=== PATIENT | female | born 1935 | race Caucasian/White ===

== ENCOUNTER 2019-12-05 08:06 | Outpatient (REF) | payer MEDICARE, SELFPAY ==
--- NOTE | 2019-12-05 08:17 | MM_ITS ---
EXAMINATION: MM SCREENING DIGITAL BREAST TOMOSYNTHESIS, BILATERAL CLINICAL INFORMATION: Screening. Asymptomatic. The lifetime risk of breast cancer based on the Tyrer-Cuzick Model is 1%. COMPARISON: Mammography: 08/28/2011, 07/14/2010, 05/14/2009 TECHNIQUE: Digital breast tomosynthesis is performed in both the craniocaudal and mediolateral oblique views along with computer-aided detection (CAD). Synthesized 2D images are generated from the tomosynthesis. FINDINGS: There are scattered areas of fibroglandular density (ACR BI-RADS breast composition Category b). Parenchymal pattern is similar to remote prior exams. There is stable oval nodularity anterior outer left breast and stable nodularity anterior central right breast. Again, there are scattered bilateral coarse calcifications and calcifications anterior left breast overlying chronic ductal ectasia. There is no significant mass or architectural abnormality or interval abnormal calcifications. The axilla and skin contours are unremarkable. IMPRESSION: No significant changes from prior studies. ASSESSMENT: BI-RADS 2: Benign RECOMMENDATION: Routine annual mammography screening. This patient's information was entered into a reminder system with a target due date for their next mammogram.
--- NOTE | 2019-12-05 08:18 | MM_ITS ---
EXAMINATION: BONE DENSITOMETRY CLINICAL INDICATION: Menopause. COMPARISON: Previous BD dated 05/29/2014 and baseline BD dated 01/05/2005. TECHNIQUE: Using a [employer] DXA System (software version: 13.1) manufactured by [employer], dual-energy x-ray absorptiometry was performed of the lumbar spine and left hip. The images are of good technical quality. Summary results are attached. FINDINGS: AP SPINE L1-L3 (excluding L4): The data of L1-L4 has been changed to exclude the L4 vertebral body, because degenerative changes at this level may cause overestimation of lumbar spine density. Current: BMD 0.863 g/cm2, Z-score -0.4, T-score -2.6, osteoporosis, 0.1% increase from previous, 0.6% increase from baseline (<5% change is not significant). Prior: BMD 0.862 g/cm2. Baseline: BMD 0.858 g/cm2. LEFT FEMUR, NECK: Current: BMD 0.813 g/cm2, Z-score 0.8, T-score -1.6, osteopenia. Prior: BMD 0.771 g/cm2. Baseline: BMD 0.774 g/cm2. LEFT FEMUR, TOTAL: Current: BMD 0.931 g/cm2, Z-score 1.7, T-score -0.6, normal, 2.0% increase from previous, 7.1% increase from baseline (<5% change is not significant). Prior: BMD 0.913 g/cm2. Baseline: BMD 0.869 g/cm2. IDENTIFIED RISK FACTORS: Height loss, menopause. HISTORY OF FRACTURE: None listed. MEDICATIONS: None listed. IMPRESSION: 1. DIAGNOSIS: Osteoporosis based on the lowest T-score value of -2.6 in the lumbar spine applying World Health Organization criteria. 2. 10-YEAR FRACTURE RISK PREDICTION, FRAX: Major osteoporotic fracture (clinical spine, forearm, hip or shoulder) 13.9%. Hip fracture 3.8%. 3. Treatment Recommendations: NOF guidelines recommend consideration for treatment in postmenopausal women and men age 50 and older presenting with the following: -A hip or vertebral (clinical or morphometric) fracture. -T-score less than or equal to -2.5 at the femoral neck or spine after appropriate evaluation to exclude secondary causes. -Low bone mass at the hip or spine and a 10-year fracture probability by FRAX of greater than or equal to 3% for hip fracture or greater than or equal to 20% for major osteoporotic fracture based on the [place] adapted WHO algorithm. 4. Other Recommendations: All treatment decisions require clinical judgment and consideration of individual patient factors, including patient preferences, comorbidities, previous drug use, risk factors not captured in the FRAX model (e.g. frailty, falls, vitamin D deficiency, increased bone turnover, interval significant decline in bone density) and possible under or overestimation of fracture risk by FRAX. Additional medical evaluation for secondary cause of low bone mineral density may be appropriate. FUTURE SCAN RECOMMENDATION: People with diagnosed cases of osteoporosis or at high risk for fracture should have regular bone mineral density tests. For patients eligible for Medicare, routine testing is allowed once every 2 years. The testing frequency can be increased to one year for patients who have rapidly progressing disease, those who are receiving or discontinuing medical therapy to restore bone mass, or have additional risk factors.
== END 2019-12-05 08:07 | disposition home or self-care (01) ==
LOC: HO.MAMMO 08:06
PROVIDERS: PCP Internal Medicine; Visit Provider Internal Medicine
DX: Z12.31 Encounter for screening mammogram for malignant neoplasm of breast (principal); Z13.820 Encounter for screening for osteoporosis; M81.0 Age-related osteoporosis without current pathological fracture; Z78.0 Asymptomatic menopausal state
CPT/HCPCS: 77063; 77067; 77080

== ENCOUNTER 2020-04-10 10:04 | Outpatient (REF) | payer MEDICARE, SELFPAY ==
[2020-04-10 11:47] LABS: Anion Gap 11 (12-20); Blood Urea Nitrogen 12 mg/dL (9-16); Calcium 9.3 mg/dL (8.4-10.2); Carbon Dioxide 30 mmol/L (22-29); Chloride 100 mmol/L (96-108); Estimated Glomerular Filt Rate > 60; Glucose Random 89 mg/dL (60-115); Potassium 4.8 mmol/L (3.3-5.1); Sodium 136 mmol/L (135-145)
[2020-04-10 11:57] LABS: Free T4 (Free Thyroxine) 1.23 ng/dL (0.71-1.85); Thyroid Stimulating Hormone 0.81 uIU/mL (0.32-4.0)
== END 2020-04-10 10:05 | disposition home or self-care (01) ==
LOC: HO.HMGCLDS 10:04
PROVIDERS: PCP Internal Medicine; Visit Provider Internal Medicine
DX: I10 Essential (primary) hypertension (principal); E03.9 Hypothyroidism, unspecified
CPT/HCPCS: 36415; 80048; 84439; 84443

== ENCOUNTER 2020-07-04 11:41 | Outpatient (REF) | payer MEDICARE, SELFPAY ==
[2020-07-04 13:54] LABS: MANUAL DIFF FLAG NO
[2020-07-04 14:01] LABS: Basophils Absolute Auto 0.1 X10*3/uL (0.0-0.2); Basophils Percent Auto 0.7 % (0-2); Eosinophils Absolute Auto 0.4 X10*3/uL (0.0-0.4); Eosinophils Percent Auto 4.8 % (0-4); Hematocrit 39.5 % (37-47); Hemoglobin 12.9 g/dl (12.0-16.0); Imm Gran Abs Auto 0.02 X10*3/uL (0.00-0.03); Imm Gran Pct Auto 0.3 % (0.0-0.4); Lymphocytes Absolute Auto 1.7 X10*3/uL (1.2-4.9); Lymphocytes Percent Auto 23.7 % (20-40); Mean Corpuscular HGB Conc 32.7 g/dl (31.0-35.0); Mean Corpuscular Hemoglobin 29.2 pg (27.0-33.0); Mean Corpuscular Volume 89.4 fL (80-98); Mean Platelet Volume 12.2 fL (9.4-12.3); Monocytes Absolute Auto 0.6 X10*3/uL (0.1-1.2); Monocytes Percent Auto 8.2 % (2-11); Neutrophils Absolute Auto 4.5 X10*3/uL (2.0-8.3); Neutrophils Percent Auto 62.3 % (45-73); Platelet Count 218 X10*3/uL (160-400); Red Blood Count 4.42 X10*6/uL (4.20-5.50); Red Cell Distribution Width 13.2 % (11.0-16.0); White Blood Count 7.2 X10*3/uL (4.8-10.8)
[2020-07-04 14:26] LABS: Alanine Aminotransferase 15 U/L (0-31); Albumin Level 3.9 g/dL (3.5-5.0); Alkaline Phosphatase 87 U/L (39-117); Anion Gap 10 (12-20); Aspartate Amino Transferase 14 U/L (5-31); Bilirubin Total 0.2 mg/dL (0.0-1.0); Blood Urea Nitrogen 10 mg/dL (9-16); C Reactive Protein 0.51 mg/dL (< or = 0.50); Calcium 8.9 mg/dL (8.4-10.2); Carbon Dioxide 30 mmol/L (22-29); Chloride 102 mmol/L (96-108); Estimated Glomerular Filt Rate > 60; Glucose Random 96 mg/dL (60-115); Sodium 138 mmol/L (135-145); Total Protein 6.8 g/dL (6.5-8.0)
== END 2020-07-04 11:42 | disposition home or self-care (01) ==
LOC: HO.10HDL 11:41
PROVIDERS: Visit Provider Internal Medicine
DX: R10.9 Unspecified abdominal pain (principal)
CPT/HCPCS: 36415; 80053; 85025; 86140

== ENCOUNTER 2020-09-06 09:59 | Day surgery (SDC) | payer MEDICARE, SELFPAY ==
[2020-09-02 11:23] VITALS: BMI 26.1
--- NOTE | 2020-09-05 10:17 | P.CONAN_ITS ---
Documented by User: Heavenly Mac 09/05/20 10:18 HPI - Anesthesia Eval Consult details Narrative: 85yo F for Colonoscopy [facility] Past Medical History Medical History GERD (gastroesophageal reflux disease) HTN (hypertension) Thyroid disease Surgical History Surgical History H/O colonoscopy History of esophagogastroduodenoscopy (EGD) Social History Social History Advance Directives: No Advance Directives Information Provided: Yes Meds Allergies Allergy/AdvReac Type Severity Reaction Status Date / Time No Known Allergies Allergy Verified 09/02/20 11:14 Home Medications Medication Instructions Recorded Confirmed Last Taken Type levothyroxine 100 mcg PO DAILY 09/02/20 09/02/20 Unknown History metoprolol tartrate 25 mg PO DAILY 09/02/20 09/02/20 Unknown History omeprazole 20 mg PO DAILY 09/02/20 09/02/20 Unknown History Exam Exam Date and Time: September 05, 2020 1017 Height,Weight and Vital Signs: Height 4 ft 10 in Weight 56.699 kg Pertinent Lab Results Pertinent Lab Results: Laboratory Tests 07/04/20 07/04/20 11:50 11:50 WBC 7.2 Hgb 12.9 Hct 39.5 Plt Count 218 Sodium 138 Potassium 4.0 Chloride 102 Carbon Dioxide 30 H BUN 10 Creatinine 0.75 Assessment and Plan Assessment Anesthesia Assessment: Chart Reviewed Documented by User: Krishan Lewis 09/06/20 13:42 [facility] Past Medical History Medical History GERD (gastroesophageal reflux disease) HTN (hypertension) Thyroid disease Surgical History Surgical History H/O colonoscopy History of esophagogastroduodenoscopy (EGD) Social History Social History Advance Directives: No Advance Directives Information Provided: Yes Meds Allergies Allergy/AdvReac Type Severity Reaction Status Date / Time No Known Allergies Allergy Verified 09/02/20 11:14 Home Medications Medication Instructions Recorded Confirmed Last Taken Type levothyroxine 100 mcg PO DAILY 09/02/20 09/02/20 Unknown History metoprolol tartrate 25 mg PO DAILY 09/02/20 09/02/20 Unknown History omeprazole 20 mg PO DAILY 09/02/20 09/02/20 Unknown History Exam Airway Mallampati Class: II TM Dist: >3cm Neck ROM: Full Denture: Upper Partial: Lower Heart: rrr+s1s2 Lungs: cta b/l Assessment and Plan Assessment Anesthesia Assessment: Anesthesia Plan Discussed, PAT Visit and Chart Reviewed Final Anesthetic Review NPO: Yes ASA Class: III Final Preanesthetic Review: No Changes in Pt Med Stat, Meds/Allgs Chart Reviewed, Consent Obtained/Reviewed and Anes Risks/Benef Reviewed Patient Risk: Intermediate Procedure Risk: Low Assessment/Block/Sedation in SS: Assess/Block/Sedation-SS Anesthetic Plan Anesthetic Plan: MAC: and Agree w/ Assess. and Plan Disposition: Standard PACU
[2020-09-06 12:40] VITALS: BP 172/81; PULSE 91; RESP 18; TEMP 35.4; O2SAT 97
[2020-09-06] MEDS: Lactated Ringers 1,000 ML 100 ML IVCONT (12:57)
[2020-09-06 15:20] VITALS: BP 113/60; PULSE 83; RESP 12; TEMP 36.7; O2SAT 99
--- NOTE | 2020-09-06 15:20 | PM.OP ---
Brief Operative Note Date of Service: 09/06/20 Pre-op diagnosis: + Cologuard Post-op diagnosis: other (Ulcerative colitis, Colon polyps) Procedure: Colonoscopy to the cecum with snare polypectomy x 2, placement of 2 Resolution clips, and biopsies Surgeon: Bello Grayson Anesthesia: MAC Was an Barrel Filler Head used for this Procedure?: No Estimated blood loss (mL): 5.0 Pathology: other (A. Cecal polyps B. Colon at 20cm C. Rectum) Condition: stable Disposition: PACU
[2020-09-06 15:32] VITALS: BP 113/60; PULSE 83; RESP 16; TEMP 36.7; O2SAT 100
--- NOTE | 2020-09-06 17:28 | OP_ITS ---
SURGEON: Bello Grayson MD INDICATIONS: Full consent has been obtained from her for this, including risks of bleeding and perforation. PREOPERATIVE DIAGNOSIS: POSTOPERATIVE DIAGNOSIS: PROCEDURE PERFORMED: Colonoscopy to the cecum with snare polypectomy, placement of 2 resolution clips on the cecal polypectomy site, and biopsies. ESTIMATED BLOOD LOSS: COMPLICATIONS: ANESTHESIA: Monitored anesthesia care. ASSISTANTS: SPECIMENS: PREOPERATIVE DIAGNOSES: Positive Cologuard test and diarrhea. POSTOPERATIVE DIAGNOSES: Positive Cologuard test and diarrhea, colon polyps, ulcerative colitis involving rectum and distal sigmoid colon, diverticulosis. DESCRIPTION OF PROCEDURE: The patient was placed in the left lateral decubitus position. The digital rectal exam revealed a somewhat tight anal sphincter. There were no masses. The [employer] video pediatric colonoscope was entered into the rectum and advanced easily to the cecum. Once in the cecum, I did identify cecal pouch with appendiceal orifice and a normal-appearing ileocecal valve. In the cecum, were 2 flat, but raised approximately 10 to 12 mm polyps, which were each snared and recovered by suction. One of the polypectomy sites had some oozing and therefore 2 resolution clips were placed with good deployment and good hemostasis. There was transillumination of light deep in the right lower quadrant. The scope was then slowly withdrawn assessing all mucosal surfaces carefully. Preparation was excellent. I did not visualize any other polyps, angiodysplasias, nor any other abnormalities until reaching the very distal sigmoid colon. In the rectum and distal sigmoid colon, was evidence of an ulcerative colitis with circumferential friability, edema, and changes of colitis. Biopsies were obtained at 20 cm and in the rectum. I did try to retroflex the scope in the rectum, but it would not retroflex perhaps from some relative spasm and/or narrowing in the rectum from the colitis. However, the distal rectum was visualized well in the forward viewing position as the scope was withdrawn and no other abnormalities were noted. The patient tolerated the procedure well and was returned to recovery area in stable condition. IMPRESSION: 1. Distal ulcerative colitis. 2. Colon polyps. 3. Diverticulosis. PLAN: The results of the pathology will be checked. I doubt she will need any further screening colonoscopies going forward. She will start Asacol 800 mg t.i.d. for the colitis. She will be seen within 1 or 2 months for a followup visit. I did review all this in detail with the patient and her and did advise them to call me prior to the next visit if she is having any problems or if the medication is not helping the colitis improved. She was advised to stay off all aspirin and NSAIDs long-term as well. MD YRN Mathias/ELLIOT / [id number] MTDD
== END 2020-09-06 15:45 | disposition home or self-care (01) ==
PROVIDERS: PCP Internal Medicine; Visit Provider Internal Medicine
PROC: 0DJD8ZZ Inspection of Lower Intestinal Tract, Via Natural or Artificial Opening Endoscopic (ICD-10-PCS; CPT 45378; principal; 2020-09-06 13:20)
DX: R19.5 Other fecal abnormalities (principal); D12.0 Benign neoplasm of cecum; K51.40 Inflammatory polyps of colon without complications; K51.30 Ulcerative (chronic) rectosigmoiditis without complications; K57.30 Diverticulosis of large intestine without perforation or abscess without bleeding; K21.9 Gastro-esophageal reflux disease without esophagitis; I10 Essential (primary) hypertension; E03.9 Hypothyroidism, unspecified; Z79.899 Other long term (current) drug therapy
CPT/HCPCS: 45385; 45380; 88305

== ENCOUNTER 2020-10-15 13:37 | Outpatient (REF) | payer MEDICARE, SELFPAY ==
[2020-10-15 14:46] LABS: MANUAL DIFF FLAG NO
[2020-10-15 14:54] LABS: Basophils Percent Auto 0.2 % (0-2); Eosinophils Absolute Auto 0.1 X10*3/uL (0.0-0.4); Hematocrit 39.4 % (37-47); Hemoglobin 13.1 g/dl (12.0-16.0); Imm Gran Abs Auto 0.05 X10*3/uL (0.00-0.03); Imm Gran Pct Auto 0.6 % (0.0-0.4); Lymphocytes Percent Auto 12.1 % (20-40); Mean Corpuscular HGB Conc 33.2 g/dl (31.0-35.0); Mean Corpuscular Hemoglobin 28.9 pg (27.0-33.0); Mean Platelet Volume 11.4 fL (9.4-12.3); Monocytes Percent Auto 12.1 % (2-11); Neutrophils Absolute Auto 6.2 X10*3/uL (2.0-8.3); Platelet Count 212 X10*3/uL (160-400); Red Blood Count 4.53 X10*6/uL (4.20-5.50); Red Cell Distribution Width 13.5 % (11.0-16.0); White Blood Count 8.3 X10*3/uL (4.8-10.8)
[2020-10-15 15:22] LABS: Alanine Aminotransferase 15 U/L (0-31); Albumin Level 4.1 g/dL (3.5-5.0); Alkaline Phosphatase 37 U/L (39-117); Anion Gap 14 (12-20); Aspartate Amino Transferase 17 U/L (5-31); Bilirubin Direct < 0.2 mg/dL (0.0-0.5); Bilirubin Total 0.3 mg/dL (0.0-1.0); Blood Urea Nitrogen 6 mg/dL (9-16); Calcium 8.9 mg/dL (8.4-10.2); Carbon Dioxide 24 mmol/L (22-29); Chloride 99 mmol/L (96-108); Estimated Glomerular Filt Rate > 60; Glucose Random 100 mg/dL (60-115); Lipase 187 U/L (8-78); Potassium 4.1 mmol/L (3.3-5.1); Sodium 133 mmol/L (135-145); Total Protein 7.4 g/dL (6.5-8.0)
[2020-10-15 15:25] LABS: Amylase 192 U/L (28-100)
== END 2020-10-15 13:38 | disposition home or self-care (01) ==
LOC: HO.LAB 13:37
PROVIDERS: PCP Internal Medicine; Visit Provider Internal Medicine
DX: K51.30 Ulcerative (chronic) rectosigmoiditis without complications (principal); R11.0 Nausea
CPT/HCPCS: 36415; 80048; 80076; 82150; 83690; 85025

== ENCOUNTER 2020-10-24 08:21 | Outpatient (REF) | payer MEDICARE, SELFPAY ==
--- NOTE | ~2020-10-24 | US_ITS ---
EXAMINATION: US ABDOMEN COMPLETE CLINICAL INFORMATION: Epigastric pain. Elevated pancreatic enzyme. COMPARISON: None TECHNIQUE: Real-time imaging of the abdominal viscera. FINDINGS: PANCREAS: Normal. ABDOMINAL AORTA: There is evidence of atherosclerotic disease with vessel wall calcification. The abdominal aorta is normal in caliber. INFERIOR VENA CAVA: Visualized portions are normal. LIVER: Normal. The liver is normal in size. The liver contour is normal. Parenchymal echogenicity is normal. No focal hepatic lesion. There is no intrahepatic biliary duct dilatation seen. GALLBLADDER: Gallbladder is normal in size. There is some ring down artifact seen along the anterior gallbladder wall suggestive of adenomyomatosis of the gallbladder wall. No gallstones are seen. COMMON BILE DUCT: Normal in caliber measuring 0.3 cm in diameter. RIGHT KIDNEY: Normal. No hydronephrosis. No renal calculi or focal parenchymal lesions. The kidney measures 9.1 cm in maximum dimension. LEFT KIDNEY: Normal. No hydronephrosis. No renal calculi or focal parenchymal lesions. The kidney measures 10.5 cm in maximum dimension. SPLEEN: Normal. The spleen measures 8.3 cm in maximum dimension. FREE FLUID: None. US/US abdomen complete IMPRESSION: Normal-appearing pancreas. Adenomyomatosis of the gallbladder wall. Atherosclerotic disease.
[2020-10-24 11:47] LABS: Amylase 106 U/L (28-100); Lipase 55 U/L (8-78)
== END 2020-10-24 08:22 | disposition home or self-care (01) ==
LOC: HO.HMGCX 08:21
PROVIDERS: PCP Internal Medicine; Visit Provider Internal Medicine
DX: R10.13 Epigastric pain (principal); R74.8 Abnormal levels of other serum enzymes
CPT/HCPCS: 36415; 76700; 82150; 83690

== ENCOUNTER 2020-11-21 10:36 | Outpatient (REF) | payer MEDICARE, SELFPAY ==
[2020-11-21 13:55] LABS: MANUAL DIFF FLAG NO
[2020-11-21 14:11] LABS: Basophils Percent Auto 0.5 % (0-2); Eosinophils Absolute Auto 0.2 X10*3/uL (0.0-0.4); Eosinophils Percent Auto 2.3 % (0-4); Hematocrit 38.2 % (37-47); Hemoglobin 12.7 g/dl (12.0-16.0); Imm Gran Abs Auto 0.02 X10*3/uL (0.00-0.03); Imm Gran Pct Auto 0.3 % (0.0-0.4); Lymphocytes Absolute Auto 1.5 X10*3/uL (1.2-4.9); Lymphocytes Percent Auto 22.7 % (20-40); Mean Corpuscular HGB Conc 33.2 g/dl (31.0-35.0); Mean Corpuscular Hemoglobin 29.3 pg (27.0-33.0); Mean Platelet Volume 13.4 fL (9.4-12.3); Monocytes Absolute Auto 0.6 X10*3/uL (0.1-1.2); Monocytes Percent Auto 8.5 % (2-11); Neutrophils Absolute Auto 4.3 X10*3/uL (2.0-8.3); Neutrophils Percent Auto 65.7 % (45-73); Platelet Count 163 X10*3/uL (160-400); Red Blood Count 4.34 X10*6/uL (4.20-5.50); Red Cell Distribution Width 13.8 % (11.0-16.0); White Blood Count 6.5 X10*3/uL (4.8-10.8)
[2020-11-21 14:25] LABS: Alanine Aminotransferase 12 U/L (0-31); Albumin Level 4.2 g/dL (3.5-5.0); Alkaline Phosphatase 73 U/L (39-117); Anion Gap 14 (12-20); Aspartate Amino Transferase 19 U/L (5-31); Bilirubin Total 0.4 mg/dL (0.0-1.0); Blood Urea Nitrogen 12 mg/dL (9-16); Calcium 9.4 mg/dL (8.4-10.2); Carbon Dioxide 25 mmol/L (22-29); Chloride 101 mmol/L (96-108); Cholesterol 182 mg/dL; Estimated Glomerular Filt Rate > 60; Glucose Random 100 mg/dL (60-115); Potassium 4.3 mmol/L (3.3-5.1); Sodium 136 mmol/L (135-145); Total Protein 7.3 g/dL (6.5-8.0)
[2020-11-21 14:54] LABS: Free T4 (Free Thyroxine) 1.38 ng/dL (0.71-1.85); Thyroid Stimulating Hormone 0.28 uIU/mL (0.32-4.0)
== END 2020-11-21 10:37 | disposition home or self-care (01) ==
LOC: HO.HMGCLDS 10:36
PROVIDERS: PCP Internal Medicine; Visit Provider Internal Medicine
DX: E03.9 Hypothyroidism, unspecified (principal); K51.90 Ulcerative colitis, unspecified, without complications; K21.9 Gastro-esophageal reflux disease without esophagitis
CPT/HCPCS: 36415; 80053; 82465; 84439; 84443; 85025

== ENCOUNTER 2021-04-22 11:08 | Outpatient (REF) | payer MEDICARE, SELFPAY ==
[2021-04-22 13:33] LABS: MANUAL DIFF FLAG NO
[2021-04-22 13:38] LABS: Basophils Percent Auto 0.7 % (0-2); Eosinophils Absolute Auto 0.3 X10*3/uL (0.0-0.4); Eosinophils Percent Auto 4.1 % (0-4); Hematocrit 40.3 % (37.0-47.0); Hemoglobin 12.9 g/dl (12.0-16.0); Imm Gran Abs Auto 0.01 X10*3/uL (0.00-0.03); Imm Gran Pct Auto 0.2 % (0.0-0.4); Lymphocytes Absolute Auto 1.7 X10*3/uL (1.2-4.9); Lymphocytes Percent Auto 26.9 % (20-40); Mean Corpuscular Hemoglobin 27.9 pg (27.0-33.0); Mean Corpuscular Volume 87.2 fL (80.0-98.0); Monocytes Absolute Auto 0.7 X10*3/uL (0.1-1.2); Monocytes Percent Auto 11.9 % (2-11); Neutrophils Absolute Auto 3.5 x10*3/uL (2.0-8.3); Neutrophils Percent Auto 56.2 % (45-73); Platelet Count 173 X10*3/uL (160-400); Red Blood Count 4.62 X10*6/uL (4.20-5.50); Red Cell Distribution Width 13.7 % (11.0-16.0); White Blood Count 6.1 X10*3/uL (4.8-10.8)
[2021-04-22 13:51] LABS: Alanine Aminotransferase 6 U/L (0-31); Albumin Level 4.1 g/dL (3.5-5.0); Alkaline Phosphatase 79 U/L (39-117); Anion Gap 10 (12-20); Aspartate Amino Transferase 18 U/L (5-31); Bilirubin Total 0.2 mg/dL (0.0-1.0); Blood Urea Nitrogen 12 mg/dL (9-16); Calcium 9.3 mg/dL (8.4-10.2); Carbon Dioxide 30 mmol/L (22-29); Chloride 101 mmol/L (96-108); Estimated Glomerular Filt Rate > 60; Glucose Random 86 mg/dL (60-115); Potassium 4.1 mmol/L (3.3-5.1); Sodium 137 mmol/L (135-145); Total Protein 7.2 g/dL (6.5-8.0)
[2021-04-22 14:14] LABS: Vitamin B12 492 pg/mL (200-900)
[2021-04-22 14:16] LABS: Free T4 (Free Thyroxine) 1.38 ng/dL (0.71-1.85); Vitamin D 25-OH Total 20.6 ng/mL (>30)
== END 2021-04-22 11:09 | disposition home or self-care (01) ==
LOC: HO.10HDL 11:08
PROVIDERS: Visit Provider Internal Medicine
DX: E03.9 Hypothyroidism, unspecified (principal); I10 Essential (primary) hypertension; K51.90 Ulcerative colitis, unspecified, without complications
CPT/HCPCS: 36415; 80053; 82306; 82607; 84439; 84443; 85025

== ENCOUNTER 2021-11-25 10:57 | Outpatient (REF) | payer MEDICARE, SELFPAY ==
[2021-11-25 13:44] LABS: MANUAL DIFF FLAG NO
[2021-11-25 14:02] LABS: Basophils Absolute Auto 0.1 X10*3/uL (0.0-0.2); Basophils Percent Auto 0.9 % (0-2); Eosinophils Absolute Auto 0.1 X10*3/uL (0.0-0.4); Eosinophils Percent Auto 2.3 % (0-4); Hematocrit 37.8 % (37.0-47.0); Hemoglobin 12.5 g/dl (12.0-16.0); Imm Gran Abs Auto 0.01 X10*3/uL (0.00-0.03); Imm Gran Pct Auto 0.2 % (0.0-0.4); Lymphocytes Absolute Auto 1.5 X10*3/uL (1.2-4.9); Lymphocytes Percent Auto 26.5 % (20-40); Mean Corpuscular HGB Conc 33.1 g/dl (31.0-35.0); Mean Corpuscular Hemoglobin 28.7 pg (27.0-33.0); Mean Corpuscular Volume 86.9 fL (80.0-98.0); Mean Platelet Volume 12.8 fL (9.4-12.3); Monocytes Absolute Auto 0.7 X10*3/uL (0.1-1.2); Monocytes Percent Auto 11.5 % (2-11); Neutrophils Absolute Auto 3.4 x10*3/uL (2.0-8.3); Neutrophils Percent Auto 58.6 % (45-73); Platelet Count 175 X10*3/uL (160-400); Red Blood Count 4.35 X10*6/uL (4.20-5.50); Red Cell Distribution Width 13.5 % (11.0-16.0); White Blood Count 5.7 X10*3/uL (4.8-10.8)
[2021-11-25 14:23] LABS: Alanine Aminotransferase 12 U/L (0-31); Albumin Level 4.2 g/dL (3.5-5.0); Alkaline Phosphatase 74 U/L (39-117); Anion Gap 14 (12-20); Aspartate Amino Transferase 29 U/L (5-31); Bilirubin Total 0.3 mg/dL (0.0-1.0); Blood Urea Nitrogen 12 mg/dL (9-16); Calcium 9.2 mg/dL (8.4-10.2); Carbon Dioxide 27 mmol/L (22-29); Chloride 101 mmol/L (96-108); Cholesterol 189 mg/dL; Estimated Glomerular Filt Rate > 60; Glucose Random 76 mg/dL (60-115); Potassium 4.3 mmol/L (3.3-5.1); Sodium 138 mmol/L (135-145); Total Protein 7.5 g/dL (6.5-8.0)
[2021-11-25 14:45] LABS: Free T4 (Free Thyroxine) 1.36 ng/dL (0.71-1.85); Thyroid Stimulating Hormone 0.26 uIU/mL (0.32-4.0); Vitamin D 25-OH Total 37.3 ng/mL (>30)
== END 2021-11-25 10:58 | disposition home or self-care (01) ==
LOC: HO.10HDL 10:57
PROVIDERS: Visit Provider Internal Medicine
DX: I10 Essential (primary) hypertension (principal); E03.9 Hypothyroidism, unspecified; E55.9 Vitamin D deficiency, unspecified; K51.90 Ulcerative colitis, unspecified, without complications
CPT/HCPCS: 36415; 80053; 82306; 82465; 84439; 84443; 85025; 86140

== ENCOUNTER 2021-12-09 08:33 | Outpatient (REF) | payer MEDICARE, SELFPAY ==
--- NOTE | ~2021-12-09 | MM_ITS ---
EXAMINATION: BONE DENSITOMETRY CLINICAL INDICATION: Menopause. COMPARISON: Previous BD dated 12/05/2019 and baseline BD dated 01/05/2005. TECHNIQUE: Using a [employer] DXA System (software version: 13.1) manufactured by [employer], dual-energy x-ray absorptiometry was performed of the lumbar spine and left hip. The images are of good technical quality. Summary results are attached. FINDINGS: AP SPINE L1-L4: Current: BMD 1.030 g/cm2, Z-score 1.0, T-score -1.3, osteopenia, 11.5% increase from previous, 20.3% increase from baseline (<5% change is not significant). Prior: BMD 0.924 g/cm2. Baseline: BMD 0.856 g/cm2. LEFT FEMUR, NECK: Current: BMD 0.797 g/cm2, Z-score 0.9, T-score -1.7, osteopenia. Prior: BMD 0.813 g/cm2. Baseline: BMD 0.774 g/cm2. LEFT FEMUR, TOTAL: Current: BMD 0.915 g/cm2, Z-score 1.8, T-score -0.7, normal, 1.7% decrease from previous, 5.3% increase from baseline (<5% change is not significant). Prior: BMD 0.931 g/cm2. Baseline: BMD 0.869 g/cm2. IDENTIFIED RISK FACTORS: Height loss, secondary osteoporosis, menopause. HISTORY OF FRACTURE: None listed. MEDICATIONS: Vitamin D. MM/XR DEXA axial skeleton IMPRESSION: 1. DIAGNOSIS: Osteopenia based on the lowest T-score value of -1.7 in the femoral neck applying World Health Organization criteria. 2. 10-YEAR FRACTURE RISK PREDICTION, FRAX: Major osteoporotic fracture (clinical spine, forearm, hip or shoulder) 14.7%. Hip fracture 4.2%. 3. Treatment Recommendations: NOF guidelines recommend consideration for treatment in postmenopausal women and men age 50 and older presenting with the following: -A hip or vertebral (clinical or morphometric) fracture. -T-score less than or equal to -2.5 at the femoral neck or spine after appropriate evaluation to exclude secondary causes. -Low bone mass at the hip or spine and a 10-year fracture probability by FRAX of greater than or equal to 3% for hip fracture or greater than or equal to 20% for major osteoporotic fracture based on the [place] adapted WHO algorithm. 4. Other Recommendations: All treatment decisions require clinical judgment and consideration of individual patient factors, including patient preferences, comorbidities, previous drug use, risk factors not captured in the FRAX model (e.g. frailty, falls, vitamin D deficiency, increased bone turnover, interval significant decline in bone density) and possible under or overestimation of fracture risk by FRAX. Additional medical evaluation for secondary cause of low bone mineral density may be appropriate. FUTURE SCAN RECOMMENDATION: People with diagnosed cases of osteoporosis or at high risk for fracture should have regular bone mineral density tests. For patients eligible for Medicare, routine testing is allowed once every 2 years. The testing frequency can be increased to one year for patients who have rapidly progressing disease, those who are receiving or discontinuing medical therapy to restore bone mass, or have additional risk factors.
--- NOTE | ~2021-12-09 | MM_ITS ---
EXAMINATION: MM SCREENING DIGITAL BREAST TOMOSYNTHESIS, BILATERAL CLINICAL INFORMATION: Screening. Asymptomatic. COMPARISON: Mammography: 01/05/2020, 06/08/2014 TECHNIQUE: Digital breast tomosynthesis is performed in both the craniocaudal and mediolateral oblique views along with computer-aided detection (CAD). Synthesized 2D images are generated from the tomosynthesis. FINDINGS: There are scattered areas of fibroglandular density (ACR BI-RADS breast composition Category b). Parenchymal pattern is similar to prior studies. Scattered bilateral nodularity is stable to slightly decreased since 2015. There is no developing density or interval architectural abnormality. There are scattered benign calcifications. The axilla and skin contours are unremarkable. No skin changes from prior studies. MM/MM tomosynthesis screening BI IMPRESSION: No mammographic evidence of malignancy. ASSESSMENT: BI-RADS 2: Benign RECOMMENDATION: Routine annual mammography screening. This patient's information was entered into a reminder system with a target due date for their next mammogram.
== END 2021-12-09 08:34 | disposition home or self-care (01) ==
LOC: HO.MAMMO 08:33
PROVIDERS: PCP Internal Medicine; Visit Provider Internal Medicine
DX: Z12.31 Encounter for screening mammogram for malignant neoplasm of breast (principal); Z13.820 Encounter for screening for osteoporosis; Z78.0 Asymptomatic menopausal state
CPT/HCPCS: 77063; 77067; 77080

== ENCOUNTER 2022-05-06 11:23 | Outpatient (REF) | payer MEDICARE, SELFPAY ==
[2022-05-06 14:00] LABS: Anion Gap 12 (12-20); Blood Urea Nitrogen 13 mg/dL (9-16); Calcium 9.3 mg/dL (8.4-10.2); Carbon Dioxide 28 mmol/L (22-29); Chloride 101 mmol/L (96-108); Estimated Glomerular Filt Rate > 60; Glucose Random 83 mg/dL (60-115); Potassium 4.2 mmol/L (3.3-5.1); Sodium 137 mmol/L (135-145)
[2022-05-06 14:11] LABS: Free T4 (Free Thyroxine) 1.24 ng/dL (0.71-1.85); Thyroid Stimulating Hormone 0.28 uIU/mL (0.32-4.0)
== END 2022-05-06 11:24 | disposition home or self-care (01) ==
LOC: HO.10HDL 11:23
PROVIDERS: Visit Provider Internal Medicine
DX: I10 Essential (primary) hypertension (principal); E03.9 Hypothyroidism, unspecified
CPT/HCPCS: 36415; 80048; 84439; 84443

== ENCOUNTER 2022-12-17 10:24 | Outpatient (REF) | payer MEDICARE, SELFPAY ==
[2022-12-17 10:59] LABS: MANUAL DIFF FLAG NO
[2022-12-17 11:03] LABS: Basophils Percent Auto 0.6 % (0-2); Eosinophils Percent Auto 0.4 % (0-4); Hematocrit 40.1 % (37.0-47.0); Hemoglobin 13.2 g/dl (12.0-16.0); Imm Gran Abs Auto 0.01 X10*3/uL (0.00-0.03); Imm Gran Pct Auto 0.2 % (0.0-0.4); Lymphocytes Absolute Auto 1.3 X10*3/uL (1.2-4.9); Mean Corpuscular HGB Conc 32.9 g/dl (31.0-35.0); Mean Corpuscular Hemoglobin 28.3 pg (27.0-33.0); Mean Corpuscular Volume 85.9 fL (80.0-98.0); Mean Platelet Volume 11.9 fL (9.4-12.3); Monocytes Absolute Auto 0.7 X10*3/uL (0.1-1.2); Monocytes Percent Auto 12.9 % (2-11); Neutrophils Absolute Auto 3.2 x10*3/uL (2.0-8.3); Neutrophils Percent Auto 60.9 % (45-73); Platelet Count 167 X10*3/uL (160-400); Red Blood Count 4.67 X10*6/uL (4.20-5.50); Red Cell Distribution Width 13.2 % (11.0-16.0); White Blood Count 5.3 X10*3/uL (4.8-10.8)
[2022-12-17 11:24] LABS: Alanine Aminotransferase 9 U/L (0-31); Albumin Level 4.1 g/dL (3.5-5.0); Alkaline Phosphatase 72 U/L (39-117); Anion Gap 10 (12-20); Aspartate Amino Transferase 19 U/L (5-31); Bilirubin Total 0.3 mg/dL (0.0-1.0); Blood Urea Nitrogen 9 mg/dL (9-16); Calcium 9.6 mg/dL (8.4-10.2); Carbon Dioxide 29 mmol/L (22-29); Chloride 103 mmol/L (96-108); Cholesterol 185 mg/dL (<200); Estimated Glomerular Filt Rate > 60; Glucose Random 87 mg/dL (60-115); Potassium 3.9 mmol/L (3.3-5.1); Sodium 138 mmol/L (135-145); Total Protein 7.7 g/dL (6.5-8.0)
[2022-12-17 11:34] LABS: Free T4 (Free Thyroxine) 1.35 ng/dL (0.71-1.85); Thyroid Stimulating Hormone 0.06 uIU/mL (0.32-4.0); Vitamin D 25-OH Total 49.1 ng/mL (>30)
== END 2022-12-17 10:25 | disposition home or self-care (01) ==
LOC: HO.10HDL 10:24
PROVIDERS: Visit Provider Internal Medicine
DX: E03.9 Hypothyroidism, unspecified (principal); K21.9 Gastro-esophageal reflux disease without esophagitis; I10 Essential (primary) hypertension; K51.90 Ulcerative colitis, unspecified, without complications
CPT/HCPCS: 36415; 80053; 82306; 82465; 84439; 84443; 85025

== ENCOUNTER 2023-02-09 09:47 | Outpatient (REF) | payer MEDICARE, SELFPAY ==
[2023-02-09 15:07] LABS: Free T4 (Free Thyroxine) 1.32 ng/dL (0.71-1.85); Thyroid Stimulating Hormone 0.65 uIU/mL (0.32-4.0)
== END 2023-02-09 09:48 | disposition home or self-care (01) ==
LOC: HO.HMGCLDS 09:47
PROVIDERS: PCP Internal Medicine; Visit Provider Internal Medicine
DX: E03.9 Hypothyroidism, unspecified (principal)
CPT/HCPCS: 36415; 84439; 84443

== ENCOUNTER 2023-11-23 09:58 | Outpatient (REF) | payer MEDICARE, SELFPAY ==
[2023-11-23 12:59] LABS: MANUAL DIFF FLAG NO
[2023-11-23 13:10] LABS: Basophils Absolute Auto 0.1 X10*3/uL (0.0-0.2); Basophils Percent Auto 0.9 % (0-2); Hematocrit 38.6 % (37.0-47.0); Hemoglobin 12.8 g/dl (12.0-16.0); Imm Gran Abs Auto 0.02 X10*3/uL (0.00-0.03); Imm Gran Pct Auto 0.4 % (0.0-0.4); Lymphocytes Absolute Auto 1.5 X10*3/uL (1.2-4.9); Lymphocytes Percent Auto 27.3 % (20-40); Mean Corpuscular HGB Conc 33.2 g/dl (31.0-35.0); Mean Corpuscular Hemoglobin 29.8 pg (27.0-33.0); Mean Corpuscular Volume 89.8 fL (80.0-98.0); Mean Platelet Volume 11.7 fL (9.4-12.3); Monocytes Absolute Auto 0.7 X10*3/uL (0.1-1.2); Neutrophils Absolute Auto 3.2 x10*3/uL (2.0-8.3); Neutrophils Percent Auto 58.4 % (45-73); Platelet Count 177 X10*3/uL (160-400); Red Cell Distribution Width 14.1 % (11.0-16.0); White Blood Count 5.5 X10*3/uL (4.8-10.8)
[2023-11-23 13:39] LABS: Alanine Aminotransferase 8 U/L (0-31); Alkaline Phosphatase 68 U/L (39-117); Anion Gap 10 (12-20); Aspartate Amino Transferase 18 U/L (5-31); Bilirubin Total 0.4 mg/dL (0.0-1.0); Blood Urea Nitrogen 11 mg/dL (9-16); Calcium 9.4 mg/dL (8.4-10.2); Carbon Dioxide 27 mmol/L (22-29); Chloride 103 mmol/L (96-108); Cholesterol 189 mg/dL (<200); Estimated Glomerular Filt Rate > 60; Glucose Random 86 mg/dL (60-115); Potassium 3.9 mmol/L (3.3-5.1); Sodium 136 mmol/L (135-145); Total Protein 7.5 g/dL (6.5-8.0)
[2023-11-23 13:55] LABS: Free T4 (Free Thyroxine) 1.22 ng/dL (0.71-1.85); Thyroid Stimulating Hormone 0.56 uIU/mL (0.32-4.0)
== END 2023-11-23 09:59 | disposition home or self-care (01) ==
LOC: HO.HMGCLDS 09:58
PROVIDERS: PCP Internal Medicine; Visit Provider Internal Medicine
DX: I10 Essential (primary) hypertension (principal); E03.9 Hypothyroidism, unspecified; K21.9 Gastro-esophageal reflux disease without esophagitis
CPT/HCPCS: 36415; 80053; 82465; 84439; 84443; 85025

== ENCOUNTER 2024-05-02 06:04 | Outpatient (REF) | payer MEDICARE, SELFPAY ==
--- OUTSIDE RECORDS SUMMARY | 2024-05-02 06:07 | XMS_ITS | Patient Health Record ---
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 Name Role Phone Marquis Desir MD Primary Care Provider Bello Tineo Unavailable [phone] Allergies Allergen (clinical drug ingredient) Drug/Non Drug Allergy documented on EMR Reaction Allergy Type Onset Date Status sulfasalazine Sulfasalazine stomach upset Drug Allergy Active Reason For Referral No Information Medications Medication SIG (Take, Route, Frequency, Duration) Notes Start Date End Date Status Balsalazide Disodium 750 mg TAKE THREE CAPSULES THREE TIMES DAILY for 30 Active Metoprolol Tartrate 25 MG 1 tablet with food Oral as directed Active Zofran 4 MG 1 Orally Q 6 hours p rn nausea for 30 day(s) 10/15/2020 Active Levothyroxine Sodium 100 MCG 1 tablet in the morning on an empty stomach Orally Once a day for 30 day(s) Active Pantoprazole Sodium 40 MG 1 tablet Orall y Once a day for 90 days Active sulfaSALAzine Not-Ta klaus Asacol HD 800 MG 1 Orally Three times a day for 30 day(s) 09/24/2020 Not-Taking Immunizations Vaccine Route Administration Date Status Comme nts Influenza Unknown 10/24/2019 Administered Influenza Unknown 12/04/2020 Administered Influenza Unknown 12/03/2021 Administered Social History Tobacco Use: Social History Observation Description Date Details (start date - stop date) Never Smoker NA - NA Tobacco Use/Smoking Question Answer Notes Patient is a nonsmoker Alcohol Screen Question Answer Notes Did you have a drink contain ing alcohol in the past year? Yes How often did you have a dri nk containing alcohol in the past year? 2 to 4 times a month (2 points) How many drinks did you have on a typical day when you were drinking in the past year? 1 or 2 drinks (0 point) How often did you have 6 or more drinks on one occasion in the past year? Never (0 point) Points 2 Interpretation Negative Section Notes: Nonsmoker; no sig alcohol Nonsmoker; no sig alcohol Nonsmoker; no sig alcohol Nonsmoker; no sig alcohol Nonsmoker; no sig alcohol Nonsmoker; no sig alcohol Nonsmoker; no sig alcohol Nonsmoker; no sig alcohol Problems Problem Type SNOMED Code ICD Code Onset Dates Problem Status W/U Status Risk Notes Problem 705758979 Change in bowel habits (R19.4) Active confirmed Problem 726380982 Nausea (R11.0) Active confirmed Problem 36965452 Abdominal pain, epigastric (R10.13) Active confirmed Problem 179983912 Gastroesophageal reflux disease without esophagitis (K21.9) Active confirmed Problem 99906008 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) Active confirmed Problem Ulcerative colitis (34020838) Ulcerative colitis (K51.90) Active confirmed Problem Diverticular disease of colon (904587365) Diverticular disease of colon (K57.30) Active confirmed Problem 590979010 Positive colorec sandra cancer screening using Cologuard test (R19.5) Active confirmed Problem 798486380 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) Active confirmed Problem 057428938 Elevated pancrea tic enzyme (R74.8) Active confirmed Vital Signs Blood pressure diastolic 00 mm Hg 06/15/2023 Height 58 in 06/15/2023 Blood pressure systolic 00 mm Hg 06/15/2023 Weight 124 lbs 06/15/2023 BMI 25.91 kg/m2 06/15/2023 Encounters Encounter Location Date Provider Diagnosis [facility] [address] [place] [address] 06/15/2023 Bello Grayson Ulcerative colitis K 51.90 and Gastroesophageal reflux disease without esophagitis K21.9 Assessments Encounter Date Diagnosis (ICD Code) Assessment Notes Treatment Notes Treatment Clinical Notes Section Notes 06/15/2023 Gastroesophageal reflux disease without esophagitis (ICD-10 - K21.9) Overall, Tammy appears well. Her ulcerative colitis remains in clinical remission on the current regimen of the balsalazide. I did advise her to continue this current regimen. I advised her that her occasional days of loose bowel movements don't seem consistent with a flare of her colitis given that the episodes are short-lived and infrequent, and rather may reflect some underlying irritable bowel syndrome. I did advise her to let me know if the symptoms persist or become associated with bleeding. We did review her previous history of the serrated polyp removed in the cecum but at this point given her age she's inclined to hold off on any further colonoscopies for followup in that regard. She will continue pantoprazole for her reflux which is working well for her. If things remains stable I will plan to see her in one year for a followup office visit. I advised the definitely call me prior to that if she has any problems or questions I can be of assistance with. Tammy was comfortable with this plan. Thank you again for allowing me to participate in Tammy's care. I shall continue to keep you advised of her progress. 06/15/2023 Ulcerative colitis (ICD-10 - K51.90) Overall, Tammy appears well. Her ulcerative colitis remains in clinical remission on the current regimen of the balsalazide. I did advise her to continue this current regimen. I advised her that her occasional days of loose bowel movements don't seem consistent with a flare of her colitis given that the episodes are short-lived and infrequent, and rather may reflect some underlying irritable bowel syndrome. I did advise her to let me know if the symptoms persist or become associated with bleeding. We did review her previous history of the serrated polyp removed in the cecum but at this point given her age she's inclined to hold off on any further colonoscopies for followup in that regard. She will continue pantoprazole for her reflux which is working well for her. If things remains stable I will plan to see her in one year for a followup office visit. I advised the definitely call me prior to that if she has any problems or questions I can be of assistance with. Tammy was comfortable with this plan. Thank you again for allowing me to participate in Tammy's care. I shall continue to keep you advised of her progress. Plan Of Treatment Pending Test Test Name Order Date CHEM 7 PROFILE 10/15/2020 LIVER PROFILE 10/15/2020 AMYLASE 10/15/2020 LIPASE 10/15/2020 CBC w DIFF 10/15/2020 US ABD 10/15/2020 Amylase 10/15/2020 Lipase 10/15/2020 Future Test Test Name Order Date COLONOSCOPY 08/22/2020 Next Appt Details Provider Name:Bello Grayson , 06/06/2024 09:10:00 AM, [address], [address], [place], [address], Insurance Providers Payer Name Payer Address Payer Phone Subscriber Number Group Number Insured Name Patient Relationship to Insured Coverage Start Date Coverage End Date MEDICARE OF [place] [address] [place] [address] [id number] TAMMY FONTAINE Self - patient is the insured [employer] CLAIMS [address] [place] [address] [id number] TAMMY FONTAINE Self - patient is the insured Medical (General) History Medical History History ICD Code Denies NH,DM,CVA,Lung disease,renal dise ase Hypertension Hypothyroid GERD--EGD in 2006 with a sma ll hiatal hernia but no esophagitis nor Menchaca's esophagus Urinary incontinence Neg. screening colonoscopy in 2006 Colonoscopy 08/2020 with the finding of ulcerative colitis of the rectum and sigmoid colon, as well as a tubular adenoma and serrated polyp removed from the cecum. The serrated polyp had what is described as areas of high-grade dysplasia and the pathologist recommended reevaluation of that area at some point to be sure all tissue has been removed. Surgical History Surgery Date(Month/Year)
--- OUTSIDE RECORDS SUMMARY | 2024-05-02 06:07 | XMS_ITS ---
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 Medications Medication SIG (Take, Route, Frequency, Duration) Notes Start Date End Date Status Metoprolol Tartrate 25 MG 1 tablet with food Oral as directed Active Pantoprazole Sodium 40 MG 1 tablet Orall y Once a day 06/18/2022 Active Zofran 4 MG 1 Orally Q 6 hours p rn nausea for 30 day(s) 10/15/2020 Active Levothyroxine Sodium 100 MCG 1 tablet in the morning on an empty stomach Orally Once a day for 30 day(s) Active Balsalazide Disodium 750 MG TAKE THREE CAPSULES BY MOUTH THREE TIMES A DAY Orally Three times a day Active sulfaSALAzine Not-Ta klaus Asacol HD 800 MG 1 Orally Three times a day for 30 day(s) 09/24/2020 Not-Taking Social History Tobacco Use: Social History Observation [...] Negative Section Notes: Nonsmoker; no sig alcohol Vital Signs Blood pressure systolic 00 mm Hg 06/15/19 24 Blood pressure diastolic 00 mm Hg 024 Height 58 in 06/15/2023 Weight 124 lbs 06/15/2023 BMI 25.91 kg/m2 06/15/2023 Encounters Encounter Location Date Provider Diagnosis [facility] [address] [place] [address] 06/15/2023 Bello Grayson Ulcerative colitis K 51.90 and Gastroesophageal reflux disease without esophagitis K21.9 Assessments Encounter Date Diagnosis (ICD Code) Assessment Notes Treatment Notes Treatment Clinical Notes Section Notes 06/15/2023 Ulcerative colitis (ICD-10 - K51.90) Overall, [...] keep you advised of her progress. 06/15/2023 Gastroesophageal reflux disease without esophagitis (ICD-10 [...] advised of her progress. Plan Of Treatment Medication Medication Name Sig Start Date Stop Date Notes Pantoprazole Sodium 40 MG 1 tablet Orally Once a day 06/18 Balsalazide Disodium 750 MG TAKE THREE C APSULES BY MOUTH THREE TIMES A DAY Orally Three times a day Next Appt Details Follow Up: 1 Year, Reason: Provider Name:Bello Grayson , 06/06/2024 09:10:00 AM, [address] [place] [address], [address], [place], [address], Progress Notes * TAMMY FONTAINE YDOB:[birth year] (88 yo F)Acc No.[id number]:06/15/2023 Progress Notes Patient:?TAMMY FONTAINE Provider:?Bello Grayson MD :1935???Age:88 Y???Sex:Female D ate:06/15/2023 Address:[facility] [address] [place] [facility], [id number] Pcp:Marquis Desir MD Subjective: * Chief Complaints: * ???Patient presents today fo r ulcerative rectosigmoiditis * HPI: ???incontinence:? I saw Tammy in followup today in regard to her underlying history of ulcerative colitis and gastroesophageal reflux. ?Since I last saw Tammy in November of 2022 she reports that she has basically been feeling well. She remained on her balsalazide 2.25 g t.i.d. and her daily pantoprazole 40 mg. She describes her bowel movements have been quite regular other than occasional mornings of loose stools. These episodes are short-lived and not associated with any bleeding. She denies any abdominal pain, nausea, vomiting, nor melena. The great majority of the days her bowel movements are quite regular and formed. ?She enjoys a good appetite, without any significant heartburn or dysphagia. She denies abdominal pain, jaundice, nor unintentional weight loss. ?She does describe stress in relation to her 's underlying history of esophageal cancer and esophageal stent placements at [facility]. ?Laboratories from November 2022 revealed a normal CBC, chemistries, renal function, and LFTs. * ROS:?General/Constitutional:?Change in appetite?denies.?Chills?denies.?Fatigue?denies.?Ophthalmologic:?Comments?all negative.?ENT:?Comments?all negative.?Respiratory:?hemoptysis?denies.?Cough?denies.?Cardiovascular:?Chest pain?denies.?Orthopnea?denies.?Gastrointestinal:?Comments?See HPI for details.?Genitourinary:?Hematuria?denies.?Dysuria?denies.?Incontinence?denies.?Musculoskeletal:?Painful joints?denies.?Weakness?denies.?Skin:?Itching?denies.?Rash?denies.?Neurologic:?Headache?denies.?Seizures?denies.?Psychiatric:?Comments?all negative.? * Medical History:? * Surgical History:?No Surgica l History documented. * Hospitalization/Major Diagno stic Procedure:?No Hospitalization History. * Family History:?Father: dece ased, diagnosed with HTN (hypertension).?Mother: , diagnosed with HTN (hypertension).? No known hx of colon cancer, IBD, nor celiac disease. * Social History:?Tobacco Use:?Tobacco Use/Smoking?Patient is a?nonsmoker.?Drugs/Alcohol:?Alcohol Screen?Did you have a drink containing alcohol in the past year??Yes,?How often did you have a drink containing alcohol in the past year??2 to 4 times a month (2 points),?How many drinks did you have on a typical day when you were drinking in the past year??1 or 2 drinks (0 point),?How often did you have 6 or more drinks on one occasion in the past year??Never (0 point),?Points?2,?Interpretation?Negative.?Miscellaneous:?Marital status: . Occupation: house . ???Nonsmoker; no sig alcohol. * Medications:?TakingLevothyro xine Sodium 100 MCG Tablet 1 tablet in the morning on an empty stomach Orally Once a dayMetoprolol Tartrate 25 MG Tablet 1 tablet with food Oral as directedZofran 4 MG Tablet 1 Orally Q 6 hours prn nauseaPantoprazole Sodium 40 MG Tablet Delayed Release 1 tablet Orally Once a dayBalsalazide Disodium 750 MG Capsule TAKE THREE CAPSULES BY MOUTH THREE TIMES A DAY Orally Three times a dayTaking Levothyroxine Sodium 100 MCG Tablet 1 tablet in the morning on an empty stomach Orally Once a dayTaking Metoprolol Tartrate 25 MG Tablet 1 tablet with food Oral as directedTaking Zofran 4 MG Tablet 1 Orally Q 6 hours prn nauseaTaking Pantoprazole Sodium 40 MG Tablet Delayed Release 1 tablet Orally Once a dayTaking Balsalazide Disodium 750 MG Capsule TAKE THREE CAPSULES BY MOUTH THREE TIMES A DAY Orally Three times a dayNot-Taking/PRNAsacol HD 800 MG Tablet Delayed Release 1 Orally Three times a daysulfaSALAzine Medication List reviewed and reconciled with the patientNot-Taking/PRN Asacol HD 800 MG Tablet Delayed Release 1 Orally Three times a dayNot-Taking/PRN sulfaSALAzine Medication List reviewed and reconciled with the patient * Allergies:?Sulfasalazine: st silvina yanez[Allergies Verified] Objective: * Vitals:?Wt: 124 lbs, Ht: 58 in, BMI:25.91 Index, BP: 00/00 mm Hg. * Examination: ???General Examination: ?GENERAL APPEARANCE:?pleasant, well nourished, well developed, in no acute distress.?EYES:?sclera non-icteric.?ORAL CAVITY:?mucosa moist.?NECK/THYROID:?no cervical lymphadenopathy, neck supple.?SKIN:?nonjaundiced, no spider angiomata.?HEART:?S1, S2 normal.?LUNGS:?clear to auscultation bilaterally.?ABDOMEN:?normal bowel sounds, no guarding or rigidity, no guarding or rigidity, no masses palpable, soft, nontender, nondistended.?EXTREMITIES:?no edema.?NEUROLOGIC:?alert and oriented.? Assessment: * Assessment: 1.?Ulcerative colitis - K51. 90 (Primary)?2.?Gastroesophageal reflux disease without esophagitis - K21.9? Overall, Tammy appears wel l. Her ulcerative colitis remains in clinical remission [...] to keep you advised of her progress. Plan: * Treatment: 2.?Others? Continue Balsalazide Disodium Capsule, 750 MG, TAKE THREE CAPSULES BY MOUTH THREE TIMES A DAY, Orally, Three times a day.?? * Procedure Codes:?1036F TOBAC CO [id number] BP SCR NOT PRFRM REC REASON NOS * Preventive Medicine:? ??Counseling:?Care goal follow-up plan:?Above Normal BMI Follow-up?Giving encouragement to exercise,?BMI management provided?Yes.? ??Urinary Incontinence:?Urinary Incontinence?Assessment:?Present,?Plan of care documented:?Yes,?Type of plan of care:?Lifestyle interventions.? * Follow Up:?1 Year * * Sign off status: Completed true * Provider:?Bello Grayson MD Date:? 024 Generated for Bright chinchilla/Isela/Jose on:?05/02/2024 06:07 AM EDT History and Physical Notes * HPI (History of Present Illness) Category Sub-Category Detail Notes Category Not es incontinence I saw Tammy in followup today in regard to her underlying history of ulcerative colitis and gastroesophageal reflux. Since I last saw Tammy in November of 2022 she reports that she has basically been feeling well. She remained on her balsalazide 2.25 g t.i.d. and her daily pantoprazole 40 mg. She describes her bowel movements have been quite regular other than occasional mornings of loose stools. These episodes are short-lived and not associated with any bleeding. She denies any abdominal pain, nausea, vomiting, nor melena. The great majority of the days her bowel movements are quite regular and formed. She enjoys a good appetite, without any significant heartburn or dysphagia. She denies abdominal pain, jaundice, nor unintentional weight loss. She does describe stress in relation to her 's underlying history of esophageal cancer and esophageal stent placements at [facility]. Laboratories from November 2022 revealed a normal CBC, chemistries, renal function, and LFTs. Examination Category Sub-Category Detail Notes Category Not es General Examination GENERAL APPEARANCE: pleasant , well nourished, well developed, in no acute distress HEAD: EYES: sclera non-icteric EARS: NOSE: THROAT: NECK/THYROID: no cervical lymphade nopathy, neck supple HEART: S1, S2 normal CHEST: LUNGS: clear to auscultatio n bilaterally ABDOMEN: normal bowel sounds, no guarding or rigidity, no guarding or rigidity, no masses palpable, soft, nontender, nondistended NEUROLOGIC: alert and oriented SKIN: nonjaundiced, no spi flaquito angiomata EXTREMITIES: no edema PERIPHERAL PULSES: BACK: BREASTS: MUSCULOSKELETAL: MALE GENITOURINARY: LYMPH NODES: RECTAL EXAM: FEMALE GENITOURINARY: ORAL CAVITY: mucosa moist
--- OUTSIDE RECORDS SUMMARY | 2024-05-02 06:07 | XMS_ITS ---
Author Organization [facility] Address [address] [place] [address] Care Team Providers Care Podiatry Teacher Name Role Phone Marquis Desir MD Primary Care Provider Bello Tineo Unavailable [phone] Allergies Allergen (clinical drug ingredient) Drug/Non Drug Allergy documented on EMR Reaction Allergy Type Onset Date Status sulfasalazine Sulfasalazine stomach upset Drug Allergy Active REASON FOR VISIT Patient presents today for ulcerartive rectosigmoiditis Medications Medication SIG (Take, Route, Frequency, Duration) Notes Start Date End Date Status Metoprolol Tartrate 25 MG 1 tablet with food Oral as directed Active Zofran 4 MG 1 Orally Q 6 hours p rn nausea for 30 day(s) 10/15/2020 Active Pantoprazole Sodium 40 MG 1 tablet Orall y Once a day for 90 days 06/18/2022 Active Asacol HD 800 MG 1 Orally Three times a day for 30 day(s) 09/24/2020 Not-Taking Balsalazide Disodium 750 MG TAKE THREE CAPSULES BY MOUTH THREE TIMES A DAY Orally Three times a day Active sulfaSALAzine Not-Ta klaus Levothyroxine Sodium 100 MCG 1 tablet in the morning on an empty stomach Orally Once a day for 30 day(s) Active Social History Tobacco Use: Social History Observation [...] Notes: Nonsmoker; no sig alcohol Vital Signs Temperature 96.6 degrees Fahrenheit 12/18/19 23 Blood pressure systolic 000 mm Hg 12/18/19 23 Blood pressure diastolic 00 mm Hg 023 Height 58 in 12/17/2022 Weight 121 lbs 12/17/2022 BMI 25.29 kg/m2 12/17/2022 Encounters Encounter Location Date Provider Diagnosis [facility] [address] [place] [address] 12/17/2022 Bello Grayson Ulcerative colitis K 51.90 ; 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 Her ulcerative colitis remains in clinical remission on her current regimen. As such, I did advise her to continue this on a long-term basis to hopefully maintain remission. We did discuss the previous finding of the serrated polyp in the cecum with some dysplasia and the theoretical need to go back to reinspect that area with a repeat colonoscopy. However, she does not want to do that due to her 's condition, her age, and the fact that her colitis is stable and she does not want to take any chances . I advised her that we will observe things for the time being. If things are well I will plan to see her in the Spring for a followup visit. I did advise her to contact me prior to that if she has any problems or questions I can be of assistance with. Tammy was comfortable with this plan. Thank you again for allowing me to participate in Tammy's care. I shall continue to keep you advised of her progress. 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 Her ulcerative colitis remains in clinical remission on her current regimen. As such, I did advise her to continue this on a long-term basis to hopefully maintain remission. We did discuss the previous finding of the serrated polyp in the cecum with some dysplasia and the theoretical need to go back to reinspect that area with a repeat colonoscopy. However, she does not want to do that due to her 's condition, her age, and the fact that her colitis is stable and she does not want to take any chances . I advised her that we will observe things for the time being. If things are well I will plan to see her in the Spring for a followup visit. I did advise her to contact me prior to that if she has any problems or questions I can be of assistance with. Tammy was comfortable with this plan. Thank you again for allowing me to participate in Tammy's care. I shall continue to keep you advised of her progress. 12/17/2022 Serrated adenoma of colon (ICD-10 - D12.6) Overall, Tammy appears quite well. Her ulcerative colitis remains in clinical remission on her current regimen. As such, I did advise her to continue this on a long-term basis to hopefully maintain remission. We did discuss the previous finding of the serrated polyp in the cecum with some dysplasia and the theoretical need to go back to reinspect that area with a repeat colonoscopy. However, she does not want to do that due to her 's condition, her age, and the fact that her colitis is stable and she does not want to take any chances . I advised her that we will observe things for the time being. If things are well I will plan to see her in the Spring for a followup visit. I did advise her to contact me prior to that if she has any problems or questions I can be of assistance with. Tammy was comfortable with this plan. Thank you again for allowing me to participate in Tammy's care. I shall continue to keep you advised of her progress. Plan Of Treatment Medication Medication Name Sig Start Date Stop Date Notes Balsalazide Disodium 750 MG TAKE THREE C APSULES BY MOUTH THREE TIMES A DAY Orally Three times a day Next Appt Details Follow Up: Spring 2023, Reas on: Provider Name:Bello Grayson , 06/06/2024 09:10:00 AM, [address] [place] [address], [address], [place], [address], Progress Notes * ZHEN TAMMY YDOB:[birth year] (87 yo F)Acc No.[id number]:12/17/2022 Progress Notes Patient:TAMMY VASQUES Provider:?Bello Grayson MD :1935???Age:87 Y???Sex:Female D ate:12/17/2022 Address:[address] [place] [address] , [id number] Pcp:Marquis Desir MD Subjective: * Chief Complaints: * ???Patient presents today fo r ulcerartive rectosigmoiditis * HPI: ???incontinence:? I saw Tammy in followup today in regard to her underlying history of ulcerative colitis. ?Since I last saw Tammy in May she reports that she has been well. She remains on her 2.25Gm of Balsalazide t.i.d.. She describes that her bowel movements have been regular and without any significant diarrhea nor hematochezia. She denies abdominal pain, jaundice, nor weight loss. She describes a good appetite. She continues to do well on her PPI in regard to her reflux and denies any significant heartburn or dysphagia. ?She does describe some stress in relation to her 's diagnosis of esophageal cancer for which he has been undergoing treatments and placement of an esophageal stent at [facility]. * ROS:?General/Constitutional:?Change in appetite?denies.?Chills?denies.?Fatigue?denies.?Ophthalmologic:?Comments?all negative.?ENT:?Comments?all negative.?Respiratory:?hemoptysis?denies.?Cough?denies.?Cardiovascular:?Chest pain?denies.?Orthopnea?denies.?Gastrointestinal:?Comments?See HPI for details.?Genitourinary:?Hematuria?denies.?Dysuria?denies.?Incontinence?denies.?Musculoskeletal:?Painful joints?denies.?Weakness?denies.?Skin:?Itching?denies.?Rash?denies.?Neurologic:?Headache?denies.?Seizures?denies.?Psychiatric:?Comments?all negative.? * Medical History:? * Surgical History:?Denies Pas t Surgical History * Hospitalization/Major Diagno stic Procedure:? * Family History:?Father: dece ased, diagnosed with [...] Release 1 Orally Three times a daysulfaSALAzine Not-Taking/PRN Asacol HD 800 MG Tablet Delayed Release 1 Orally Three times a dayNot-Taking/PRN sulfaSALAzine DiscontinuedOmeprazole 20 MG Capsule Delayed Release Oral Balsalazide Disodium 750 MG Capsule 3 Orally Three times a dayMedication List reviewed and reconciled with the patientDiscontinued Omeprazole 20 MG Capsule Delayed Release Oral Discontinued Balsalazide Disodium 750 MG Capsule 3 Orally Three times a dayMedication List reviewed and reconciled with the patient * Allergies:?Sulfasalazine: st omach upset Objective: * Vitals:?Wt: 121 lbs, Ht: 58 in, BMI:25.29 Index, BP: 000/00 mm Hg, Temp: 96.6. * Examination: ???General Examination: ?GENERAL APPEARANCE:?pleasant, well nourished, well developed, in no acute distress.?EYES:?sclera non-icteric.?ORAL CAVITY:?mucosa moist.?NECK/THYROID:?no cervical lymphadenopathy, neck supple.?SKIN:?nonjaundiced, no spider angiomata.?HEART:?S1, S2 normal.?LUNGS:?clear to auscultation bilaterally.?ABDOMEN:?normal bowel sounds, no guarding or rigidity, no guarding or rigidity, no masses palpable, soft, nontender, nondistended.?EXTREMITIES:?no edema.?NEUROLOGIC:?alert and oriented.? Assessment: * Assessment: 1.?Ulcerative colitis - K51. 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 Overall, Tammy appears escobar te well. Her ulcerative colitis remains in clinical remission on her current regimen. As such, I did advise her to continue this on a long-term basis to hopefully maintain remission. We did discuss the previous finding of the serrated polyp in the cecum with some dysplasia and the theoretical need to go back to reinspect that area with a repeat colonoscopy. However, she does not want to do that due to her 's condition, her age, and the fact that her colitis is stable and she does not want to take any chances . I advised her that we will observe things for the time being. If things are well I will plan to see her in the Spring for a followup visit. I did advise her to contact me prior to that if she has any problems or questions I can be of assistance with. Tammy was comfortable with this plan. Thank you again for allowing me to participate in Tammy's care. I shall continue to keep you advised of her progress. Plan: * Treatment: * Procedure Codes:?1036F TOBAC CO [id number] BP SCR NOT PRFRM REC REASON NOS * Preventive Medicine:? ??Urinary Incontinence:?Urinary Incontinence?Assessment:?Present,?Plan of care documented:?Yes,?Type of plan of care:?Lifestyle interventions.? * Follow Up:?Spring 2023 * * Sign off status: Completed true * Provider:?Bello Grayson MD Date:? 023 Generated for Bright chinchilla/Isela/Mikaylaitting on:?05/02/2024 06:07 AM EDT History and Physical Notes * HPI (History of Present Illness) Category Sub-Category Detail Notes Category Not es incontinence I saw Tammy in followup today in regard to her underlying history of ulcerative colitis. Since I last saw Tammy in May she reports that she has been well. She remains on her 2.25Gm of Balsalazide t.i.d.. She describes that her bowel movements have been regular and without any significant diarrhea nor hematochezia. She denies abdominal pain, jaundice, nor weight loss. She describes a good appetite. She continues to do well on her PPI in regard to her reflux and denies any significant heartburn or dysphagia. She does describe some stress in relation to her 's diagnosis of esophageal cancer for which he has been undergoing treatments and placement of an esophageal stent at [facility]. Examination Category Sub-Category Detail Notes Category Not [...]
--- OUTSIDE RECORDS SUMMARY | 2024-05-02 06:07 | XMS_ITS | Data Portability ---
Author Organization [facility] Home Service Address [address] [place] [address] Assessment No assessment recorded. Plan of Treatment Reminders Order Date Submit Date Provider Last Modified By Organization Details Last Modified Time Details Appointments None recorded. Lab CMP, serum or plasma 2018 019 PERRI Not available 9 07:38:05 CBC 2018 019 PERRI Not available 9 07:38:05 TSH + free T4, serum 2018 019 PERRI Not available 9 07:38:05 lipid panel, blood 2017 018 PERRI Not available 8 08:40:04 CBC 2017 018 PERRI Not available 8 08:40:04 CMP, serum or plasma 2017 018 tbalicki Not available 8 08:00:45 TSH + free T4, serum 2017 018 tbalicki Not available 8 08:10:51 Referral None recorded. Procedures medication administrat ion (PROC) 2017 018 jvanasse Not available 8 08:44:05 Surgeries None recorded. Imaging None recorded. Medication Orders None recorded. Patient TargetsNo targets recorded. Patient Instructions Encounter Date Encounter Id Patient Instructions Last Modified By Organization Details Last Modified Time 12/08/2017 [id number] influenza (flu) vaccine: care instructions toña Not available 12/08/2017 10:19:58 eskawski Not available 2017 10:19:44 Reason for Referral None Reported. Results Created Date Observation Date Name Description Value Unit Range Abnormal Flag Note LastModifiedBy Organization Detail LastModifiedTime Result Notes None recorded. Problems Name Problem SNOMED Code Status Onset Date Resolution Date Notes Provider Name and Address Organization Details Recorded Time Essential hypertension 82244183 Active 2017 Juliaellen Davisyovannykaren [facility] 8 08:32:48 Hypothyroidism 74415082 Active 2017 Julia Ryanyovannykaren [facility] 8 08:32:59 Acid reflux 818441855 Active 2017 Juliaellen Moran [facility] 8 08:33:24 Psoriasis 1974159 Active 2017 Juliaellen Davisyovannykaren [facility] 8 08:33:33 Problem Notes None recorded. Medical Equipment None Reported. Allergies No known drug allergies Medications Name Sig Start Date Stop Date Status Note LastModified by Organization Details LastModified Time levothyroxine 100 mcg tablet TAKE ONE TABLET BY MOUTH EVERY DAY CHECK LABS IN 6 WEEKS active Not Available Not Available No t Available omeprazole 20 mg capsule,delayed release TAKE ONE CAPSULE BY MOUTH EVERY DAY IN THE MORNING active Not Available Not Available No t Available metoprolol tartrate 25 mg tablet TAKE ONE TABLET BY MOUTH TWICE A DAY active Not Available Not Available No t Available chlorhexidine gluconate 0.12 % mouthwash active Not Available Not Available Not Available Vitals Date Recorded Body weight Heart rate Oxygen saturation Oxygen saturation in Arterial blood by Pulse oximetry Body mass index (BMI) Body height Systolic blood pressure Diastolic blood pressure Provider Name and Address Organization Details Last Updated DateTime 8 28477.6 4 g 73 /min 96 % 96 % 28.2 kg/m2 142.24 cm 130 mm[Hg] 76 mm[Hg] Julia Moran [facility] 8 10:58:19 Date Recorded Body height Body mass index (BMI) Body weight Heart rate Oxygen saturation Oxygen saturation in Arterial blood by Pulse oximetry Systolic blood pressure Diastolic blood pressure Provider Name and Address Organization Details Last Updated DateTime 8 142.24 cm 28 kg/m2 22703.4 1 g 76 /min 96 % 96 % 126 mm[Hg] 84 mm[Hg] Julia Moran [facility] 8 09:54:58 Date Recorded Body height Body mass index (BMI) Body weight Heart rate Oxygen saturation Oxygen saturation in Arterial blood by Pulse oximetry Systolic blood pressure Diastolic blood pressure Provider Name and Address Organization Details Last Updated DateTime 9 142.24 cm 28.2 kg/m2 76395.2 g 74 /min 96 % 96 % 150 mm[Hg] 84 mm[Hg] Juliaellen Robisonkaren [facility] 9 09:53:57 Date Recorded Oxygen saturation Oxygen saturation in Arterial blood by Pulse oximetry Systolic blood pressure Diastolic blood pressure Provider Name and Address Organization Details Last Updated DateTime 9 99 % 99 % 122 mm[Hg] 70 mm[Hg] Estefanía Arevalo NP, S [address] [place] [address], [phone], [facility] 9 10:10:50 Social History Question Answer Notes LastModified by Organizat ion Details LastModified Time Tobacco Smoking Status Never Smoker Not Available [facility] 12/26/2019 03:36:23 What Was The Date Of Your Most Recent Tobacco Screening? 04/27/2018 [id number] Information not available 12/26/2019 Sex: Unknown Functional Status None recorded. Mental Status None recorded. Family History Nothing Reported. Medical History No medical history recorded. Gynecological HistoryNo gynecological history recorded. Obstetrics History GPAL:G 0 P 0 0 0 0 Immunizations Vaccine Type Date Status Note Provider Nam e and Address Organization Details Recorded Time pneumococcal polysaccharide PPV23 2 completed [facility] 08/17/2017 08:34:11 Past Encounters Encounter ID Performer Location Encounter Start Date Encounter Closed Date Diagnosis/Indication Diagnosis SNOMED-CT Code Diagnosis ICD10 Code Diagnosis Note [id number] Estefanía Arevalo NP, S [facility] [address] [facility],[place] [address] 08/17/2017 10:53:23 08/17/2017 12:12:36 Hypothyroidism 13327728 E03.9 follow Essential hypertension 46545698 I10 good control Hypercholesterolemia 136 41580 E78.00 good RR Psoriasis 7931118 L40.9 stable [id number] Estefanía Arevalo NP, S [facility] [address] [facility],[place] [address] 12/08/2017 09:43:21 12/13/2017 09:32:49 Hypothyroidism 83991316 E03.9 controlled Essential hypertension 69768710 I10 good control, cont. meds Psoriasis 6262033 L40.9 stable, up to date derm Q year Administra tion of influenza vaccine 58035326 Z23 left deltoid, [id number] 1A, exp 07/16/18 [place] [id number] Estefanía Arevalo NP, S [facility] [address] [facility],[place] [facility] [address] 04/27/2018 09:44:28 04/27/2018 11:11:29 Hypothyroidism 81007846 E03.9 controlled Essential hypertension 21575337 I10 good control, cont. meds Acid reflux 310798810 K2 1.9 Psoriasis 9764438 L40.9 stable, up to date derm Q year Health Concerns Section Related Observation LastModified by Organization Detai ls LastModified Time None Recorded Concern Status LastModified by Organization Details LastModified Time None Recorded Advance Directives Directive None Recorded Payers Encounter Date Sequence Insurance Name Policy Number Policy [place] Covered Member ID [place] Member ID Guarantor Name 08/17/2017 2 [place] [id number] Sol Imer [id number] Sol Y Imer 08/17/2017 1 [place] [employer] Sol Y Imer [id number] Sol Y Imer 12/08/2017 2 [place] [id number] Sol Imer [id number] Sol Y Imer 12/08/2017 1 [place] Sol Y Imer [id number] Sol Y Imer 04/27/2018 2 [place] [id number] Sol Imer [id number] Sol Y Imer 04/27/2018 1 [place] Sol Y Imer [id number] B Sol Willams Notes Date Note Type Note Provider Name a nd Address Organization Details Recorded Time 08/17/2017 text/html Feels fine, no concerns continues to walk without any difficulty daily, does all ADL's , recently finished spring cleaning Denies any CP/SOB/dizziness No abdominal pain No changes bowel/bladder Estefanía Arevalo NP, [address] [place], [address], [facility] 08/17/2017 11:57:35 12/08/2017 text/html Feels well, no concerns Continues to do all ADL's without Cp/SOB Denies joint pains Denies palpitations Estefanía Arevalo NP, [address] [place], [address], [facility] 12/08/2017 10:20:01 04/27/2018 text/html Routine appt Fee ls fine Stays active in house-did have fall January, lost balance, back hurt X 2 weeks better now Denies dizziness/CP prior to fall No further falls Estefanía Arevalo NP, [address] [place], [address], [facility] 04/27/2018 11:06:27 OBGyn Episode No OBEpisode recorded.
[2024-05-02 10:25] LABS: MANUAL DIFF FLAG NO
[2024-05-02 10:32] LABS: Basophils Percent Auto 0.8 % (0-2); Hematocrit 38.9 % (37.0-47.0); Hemoglobin 13.4 g/dl (12.0-16.0); Imm Gran Abs Auto 0.01 X10*3/uL (0.00-0.03); Imm Gran Pct Auto 0.3 % (0.0-0.4); Lymphocytes Absolute Auto 1.3 X10*3/uL (1.2-4.9); Lymphocytes Percent Auto 32.4 % (20-40); Mean Corpuscular HGB Conc 34.4 g/dl (31.0-35.0); Mean Corpuscular Hemoglobin 31.4 pg (27.0-33.0); Mean Corpuscular Volume 91.1 fL (80.0-98.0); Mean Platelet Volume 11.3 fL (9.4-12.3); Monocytes Absolute Auto 0.5 X10*3/uL (0.1-1.2); Monocytes Percent Auto 12.8 % (2-11); Neutrophils Absolute Auto 2.1 x10*3/uL (2.0-8.3); Neutrophils Percent Auto 53.7 % (45-73); Platelet Count 180 X10*3/uL (160-400); Red Blood Count 4.27 X10*6/uL (4.20-5.50); Red Cell Distribution Width 13.8 % (11.0-16.0)
[2024-05-02 11:03] LABS: Alanine Aminotransferase 11 U/L (0-31); Albumin Level 4.1 g/dL (3.5-5.0); Alkaline Phosphatase 62 U/L (39-117); Anion Gap 11 (12-20); Aspartate Amino Transferase 23 U/L (5-31); Bilirubin Total 0.4 mg/dL (0.0-1.0); Blood Urea Nitrogen 9 mg/dL (9-16); Calcium 9.3 mg/dL (8.4-10.2); Carbon Dioxide 29 mmol/L (22-29); Chloride 105 mmol/L (96-108); Cholesterol 208 mg/dL (<200); Estimated Glomerular Filt Rate > 60; Glucose Fasting 97 mg/dL (60-99); HDL Cholesterol 69 mg/dL (>40); LDL Cholesterol Calculated 122 mg/dL (<100); Potassium 4.6 mmol/L (3.3-5.1); Sodium 140 mmol/L (135-145); Total Protein 7.9 g/dL (6.5-8.0); Triglycerides 86 mg/dL (<150)
[2024-05-02 11:17] LABS: Vitamin B12 306 pg/mL (200-900)
[2024-05-02 11:23] LABS: Free T4 (Free Thyroxine) 1.33 ng/dL (0.71-1.85); Thyroid Stimulating Hormone 0.85 uIU/mL (0.32-4.0); Vitamin D 25-OH Total 64.1 ng/mL (>30)
== END 2024-05-02 06:05 | disposition home or self-care (01) ==
LOC: HO.HMGCLDS 06:04
PROVIDERS: PCP Internal Medicine; Visit Provider Internal Medicine
DX: I10 Essential (primary) hypertension (principal); K21.9 Gastro-esophageal reflux disease without esophagitis; E03.9 Hypothyroidism, unspecified; K51.90 Ulcerative colitis, unspecified, without complications
CPT/HCPCS: 36415; 80053; 80061; 82306; 82607; 84439; 84443; 85025

== ENCOUNTER 2024-05-19 09:39 | Outpatient (AMB) | payer MEDICARE, SELFPAY ==
[2024-05-19 09:47] VITALS: BP 124/80; PULSE 68; RESP 14; TEMP 36.4; O2SAT 97; BMI 31.8
--- NOTE | 2024-05-19 09:47 | MHC.PC.OV ---
Vital Signs 05/19/24 09:47 Height 4 ft 6 in Weight 132 lb BMI 31.8 BP 124/80 Respiration 14 Pulse 68 Pulse Source Pulse Oximeter Temp 97.6 F Temp Source Temporal Artery Scan Pulse Oximetry (%) 97 Oxygen Delivery Method Room Air Intake Visit Reasons: Routine Underwriting Technician Required: No Accompanied by: Spouse Allergies No Known Allergies Allergy (Verified 05/19/24 09:50) Tobacco use date assessed: 05/19/24 Fall risk assessment: No Falls in past year Last assessed Fall Risk: 05/19/24 Dental Screening Dental Screen Date: 05/19/24 Did you have a dental visit in the last 12 months?: No Did you have a dental problem in the last 6 months where you did not have access to dental care?: No Was dental information given to patient?: No (pt has dentures) HPI HPI Comments History of Present Illness Details 89 year old female with a past medical history of hypothyroid, htn, UC, osteoporosis presenting for follow up CV: On metoprolol tartrate 25 twice daily. Denies chest pain, dizziness, exertional dyspnea. Hypothyroid: On levothyroxine 100mcg daily. UC: Follows with Dr Grayson. Stable on balsalazide ROS CONSTITUTIONAL: Denies weight loss, fever and chills. HEENT: Denies changes in vision and hearing. RESPIRATORY: Denies SOB and cough. CV: Denies palpitations and CP GI: Denies abdominal pain, nausea, vomiting and diarrhea. : Denies dysuria and urinary frequency. MSK: Denies new myalgia and joint pain. SKIN: Denies rash and pruritus. NEUROLOGICAL: Denies headache PSYCHIATRIC: Denies recent changes in mood. PHYSICAL EXAM: GENERAL: Alert and oriented x 3. NAD EYES: EOMI. Anicteric. HENT: Moist mucous membranes. No scleral icterus. No cervical lymphadenopathy. LUNGS: Clear to auscultation bilaterally. CARDIOVASCULAR: Regular rate and rhythm. No murmur. No JVD. ABDOMEN: Soft, non-tender +bs EXTREMITIES: No edema. Non-tender. SKIN: No rashes or lesions. Warm. NEUROLOGIC: No focal neurological deficits. CN II-XII grossly intact PSYCHIATRIC: Cooperative. Appropriate mood and affect [facility] Medical History GERD (gastroesophageal reflux disease) Thyroid disease HTN (hypertension) Surgical History H/O colonoscopy History of esophagogastroduodenoscopy (EGD) [facility] Alcohol intake: current Alcohol intake frequency: holidays/special occasions only Alcohol type: wine Patient Tobacco Use Status: Former Tobacco user service: No Current occupational status: retired Cognitive needs: No Hearing needs: No Vision needs: Yes (rx glasses) Questionnaire PHQ-9 Over the last 2 weeks, how often have you been bothered by any of the following problems? 1. Little interest or pleasure in doing things: not at all 2. Feeling down, depressed, or hopeless: not at all 3. Trouble falling or staying asleep, or sleeping too much: not at all 4. Feeling tired or having little energy: not at all 5. Poor appetite or overeating: not at all 6. Feeling bad about yourself - or that you are a failure or have let yourself or your family down: not at all 7. Trouble concentrating on things, such as reading the newspaper or watching television: not at all 8. Moving or speaking so slowly that other people could have noticed. Or the opposite - being so fidgety or restless that you have been moving around a lot more than usual: not at all 9. Thoughts that you would be better off or of hurting yourself in some way: not at all Total score: 0 Depression Screening Interpretation: Negative Depression Screening Done: Yes 82816 - PHQ-9 Billing: Yes Source: Developed by Drs. Bello Sloan, Evelina Saravia, Jl Christine and colleagues, with an educational salma from [employer]. Thrive Questionnaire Date Thrive assessed: 05/19/24 I am a: Patient What is your living situation today?: I have a steady place to live Within the past 12 months, did the food you bought not last and you didn't have the money to get more?: Never true Within the past 12 months, did you worry whether your food would run out before you got money to buy more?: Never true Do you have trouble paying for medicines?: No Do you have trouble getting transportation to medical appointments?: No Do you have trouble paying your heating and electricity bill?: No Do you have trouble taking care of your child, family member or friend?: No Do you have trouble with day-to-day activities such as bathing, preparing meals, shopping, managing finances, etc.?: No Are you currently unemployed and looking for a job?: No Are you interested in more education?: No Please select the resources that you would like help with: None THRIVE Score: 0 AUDIT C Alcohol Use Questionnaire (AUDIT-C) 1. How often do you have a drink containing alcohol?: Monthly or less 2. How many drinks containing alcohol do you have on a typical day when you are drinking?: 1 or 2 3. How often do you have six or more drinks on one occasion?: Never Total Score: 1 EARNEST-7 AMB Questionnaire EARNEST-7 Date EARNEST - 7 assessed: 05/19/24 Feeling nervous, anxious, or on edge: 0 = Not at all Not being able to stop or control worryin = Not at all Worrying too much about different things: 0 = Not at all Trouble relaxin = Not at all Being so restless that it is hard to sit still: 0 = Not at all Becoming easily annoyed or irritable: 0 = Not at all Feeling afraid as if something awful might happen: 0 = Not at all Total EARNEST-7 score (0-4 normal; 5-9 mild; 10-14 moderate; 15-21 severe): 0 Source: Developed by Drs. Bello Sloan, Evelina Saravia, Jl Christine and colleagues, with an educational salma from [employer]. Physical exam (Primary Care) Vital Signs: Last Vital Signs Temp 97.6 F 05/19/24 09:47 Pulse 68 05/19/24 09:47 Resp 14 05/19/24 09:47 BP 124/80 05/19/24 09:47 Pulse Ox 97 05/19/24 09:47 Oxygen Delivery Method Room Air 05/19/24 09:47 BMI result Body Mass Index 31.8 Tobacco/Smoking Status: Tobacco use Status Tobacco use date assessed 05/19/24 05/19/24 09:54 Patient Tobacco Use Status Former Tobacco user 05/19/24 09:54 PHQ-9: PHQ-9 Score PHQ-9: Total score 0 05/19/24 10:13 Depression Screening Interpretation: Negative Thrive Assessment: Date of Thrive Assessment Date Thrive assessed 05/19/24 05/19/24 09:54 Coding Level of Care Code New Pt Level 4 (70001) Complex EM visit Add On G2211 Diagnoses Primary hypertension I10 Hypertension type: primary hypertension Thyroid disease E07.9 Gastroesophageal reflux disease, unspecified whether esophagitis present K21.9 Esophagitis presence: esophagitis presence not specified Additional Codes PHQ-9 - 84879 - PHQ-9 Billing: Yes ([id number]) Assessment & Plan Assessment & Plan (1) HTN (hypertension): Code(s): I10 - Essential (primary) hypertension Category: Medical Qualifiers: Hypertension type: primary hypertension Qualified Code(s): I10 - Essential (primary) hypertension (2) Thyroid disease: Comment: hypothyroid Code(s): E07.9 - Disorder of thyroid, unspecified Category: Medical (3) GERD (gastroesophageal reflux disease): Code(s): K21.9 - Gastro-esophageal reflux disease without esophagitis Category: Medical Qualifiers: Esophagitis presence: esophagitis presence not specified Qualified Code(s): K21.9 - Gastro-esophageal reflux disease without esophagitis Plan 89 y/o to establish care Past medical, surgical, social family history reviewed Chronic medical conditions reviewed. Labs ordered Follow up six months Orders: Orders TSH reflex Free T4 6 Months E07.9 - Disorder of thyroid, unspecified, E78.00 - Pure hypercholesterolemia, unspecified, I10 - Essential (primary) hypertension, K21.9 - Gastro-esophageal reflux disease without esophagitis Comprehensive Met. Panel 6 Months E07.9 - Disorder of thyroid, unspecified, E78.00 - Pure hypercholesterolemia, unspecified, I10 - Essential (primary) hypertension, K21.9 - Gastro-esophageal reflux disease without esophagitis Complete Blood Count Auto Diff 6 Months E07.9 - Disorder of thyroid, unspecified, E78.00 - Pure hypercholesterolemia, unspecified, I10 - Essential (primary) hypertension, K21.9 - Gastro-esophageal reflux disease without esophagitis Lipid Panel 6 Months E07.9 - Disorder of thyroid, unspecified, E78.00 - Pure hypercholesterolemia, unspecified, I10 - Essential (primary) hypertension, K21.9 - Gastro-esophageal reflux disease without esophagitis Medications: New levothyroxine 100 mcg PO DAILY 90 tabs 3RF omeprazole 20 mg PO DAILY 90 caps 3RF Changed From metoprolol tartrate 25 mg PO DAILY To metoprolol tartrate 25 mg PO BID 180 tabs 3RF
== END 2024-05-19 10:30 | disposition home or self-care (01) ==
LOC: HO.HMCHD 09:40
PROVIDERS: PCP Internal Medicine; Visit Provider Internal Medicine
DX: I10 Essential (primary) hypertension (principal); E07.9 Disorder of thyroid, unspecified; K21.9 Gastro-esophageal reflux disease without esophagitis

== ENCOUNTER → 2024-05-19 09:39 | Outpatient (BNVA) | payer MEDICARE, SELFPAY | PROVIDERS: PCP Internal Medicine; Visit Provider Internal Medicine | DX: I10 Essential (primary) hypertension (principal); E07.9 Disorder of thyroid, unspecified; K21.9 Gastro-esophageal reflux disease without esophagitis; Z79.899 Other long term (current) drug therapy | CPT/HCPCS: 96127; 99202 ==

== ENCOUNTER 2024-11-21 13:16 | Outpatient (AMB) | payer MEDICARE, SELFPAY ==
--- NOTE | 2024-11-21 13:09 | MHC.PC.OV ---
Vital Signs 11/21/24 13:26 Height 4 ft 6 in Weight 57.153 kg BMI 30.4 BP 148/80 H Respiration 16 Pulse 61 Pulse Source Pulse Oximeter Temp 98.4 F Temp Source Temporal Artery Scan Pulse Oximetry (%) 96 Oxygen Delivery Method Room Air Intake Visit Reasons: ANGELICA / [facility] / Dr Desir Stained Glass Glazier Required: No Accompanied by: Self / Same As Patient Allergies No Known Allergies Allergy (Verified 11/21/24 13:19) Tobacco use date assessed: 05/19/24 Fall risk assessment: No Falls in past year Last assessed Fall Risk: 11/21/24 Dental Screening Dental Screen Date: 05/19/24 HPI HPI Comments History of Present Illness Details 89-year-old female with history of hypertension, hypothyroidism, ulcerative colitis, GERD, psoriasis, osteoporosis presenting to the office today for management of chronic conditions and to establish care. Ulcerative colitis-on balsalazide. Following with Dr. Grayson in gastroenterology. Colonoscopy was discussed at last visit 05/2024 but patient declined any invasive testing though this was recommended to remove any residual polyp tissue and in doing so prevent colorectal cancer despite her age. Occ flares with several loose stools but quickly resolves. No hematachezia or melena GERD-following with Dr. Grayson and Gastroenterology. Stable on pantoprazole 40 mg daily Hypothyroidism- as TSH 0.85, free T4 1.33. On levothyroxine 100 mcg daily. Hypertension-blood pressure in the office 148/80 and on recheck. At home, 142/70. Compliant with metoprolol 25 mg twice daily Osteoporosis-taking calcium and vitamin-D. Last DEXA scan 11/2021, T-score -1.7. Walks and does housework for exercise. Glaucoma- [facility]. Using latanoprost Concerns: passed last month due to cancer. Has good supports Health maintenance: Last bone density as above No longer undergoing mammograms or colonoscopies ROS: General: No fevers, malaise, unintentional weight loss HEENT: No blurred vision, diplopia. No sore throat, nasal congestion, rhinorrhea, sinus pain, ear pain Cardiovascular: No chest pain, palpitations, or leg edema Respiratory: No shortness of breath, wheezing, cough GI: See HPI : No dysuria, hematuria, increased urinary frequency, decreased urinary output MSK: No myalgia, back pain Neuro: No headaches, weakness, paresthesias Skin: No rashes or lesions EXAM: Constitutional - Awake and Alert, No apparent distress Eyes - PERRL Cardiovascular - S1S2, RRR, No edema Respiratory - Normal lung expansion, Normal respiratory effort, No respiratory distress, CTA bilaterally Extremities - no calf tenderness bilaterally, no swelling Skin - Warm/Dry Neurological - Alert & oriented x3 Psychological - Appropriate affect [facility] Medical History (Updated 11/21/24 @ 13:37 by CEE Coronel) Psoriasis History of colon polyps Ulcerative colitis Osteoporosis GERD (gastroesophageal reflux disease) Thyroid disease HTN (hypertension) Surgical History H/O colonoscopy History of esophagogastroduodenoscopy (EGD) [facility] Alcohol intake: current Alcohol intake frequency: holidays/special occasions only Alcohol type: wine Patient Tobacco Use Status: Former Tobacco user e-Cigarette/Vaping Use: Never Used service: No Current occupational status: retired Cognitive needs: No Hearing needs: No Vision needs: Yes (rx glasses) Questionnaire Thrive Questionnaire Date Thrive assessed: 05/19/24 EARNEST-7 AMB Questionnaire EARNEST-7 Date EARNEST - 7 assessed: 05/19/24 Source: Developed by Drs. Bello Sloan, Evelina Saravia, Jl Christine and colleagues, with an educational salma from [employer] Physical exam (Primary Care) Vital Signs: Last Vital Signs Temp 98.4 F 11/21/24 13:26 Pulse 61 11/21/24 13:26 Resp 16 11/21/24 13:26 BP 148/80 H 11/21/24 13:26 Pulse Ox 96 11/21/24 13:26 Oxygen Delivery Method Room Air 11/21/24 13:26 BMI result Body Mass Index 30.4 Tobacco/Smoking Status: Tobacco use Status Tobacco use date assessed 05/19/24 11/21/24 13:10 Patient Tobacco Use Status Former Tobacco user 11/21/24 13:10 e-Cigarette/Vaping Use Never Used 11/21/24 13:28 Thrive Assessment: Date of Thrive Assessment Date Thrive assessed 05/19/24 11/21/24 13:10 Coding Level of Care Code Est Pt Level 4 (77964) Complex EM visit Add On G2211 Diagnoses Primary hypertension I10 Hypertension type: primary hypertension Thyroid disease E07.9 Ulcerative colitis K51.90 Osteoporosis M81.0 Assessment & Plan Assessment & Plan (1) HTN (hypertension): Code(s): I10 - Essential (primary) hypertension Category: Medical Qualifiers: Hypertension type: primary hypertension Qualified Code(s): I10 - Essential (primary) hypertension Plan: Improved on recheck. Normal at home. Continue checking at home and take metoprolol as prescribed (2) Thyroid disease: Comment: hypothyroid Code(s): E07.9 - Disorder of thyroid, unspecified Category: Medical Plan: Continue levothyroxine. TSH ordered (3) Ulcerative colitis: Code(s): K51.90 - Ulcerative colitis, unspecified, without complications Category: Medical Plan: Continue following with GI, last note reviewed. Continue with balsalazide (4) Osteoporosis: Code(s): M81.0 - Age-related osteoporosis without current pathological fracture Category: Medical Plan: Not intertested in repeat study or therapies. Away of risk of fracture. Continue calcium and vit d as well as weight bearing exercise Plan Follow up in 6 months Orders: Orders Basic Metabolic Panel Today E07.9 - Disorder of thyroid, unspecified, I10 - Essential (primary) hypertension, K51.90 - Ulcerative colitis, unspecified, without complications, L40.9 - Psoriasis, unspecified, M81.0 - Age-related osteoporosis without current pathological fracture, Z86.0100 - Personal history of colon polyps, unspecified TSH reflex Free T4 Today E07.9 - Disorder of thyroid, unspecified, I10 - Essential (primary) hypertension, K51.90 - Ulcerative colitis, unspecified, without complications, L40.9 - Psoriasis, unspecified, M81.0 - Age-related osteoporosis without current pathological fracture, Z86.0100 - Personal history of colon polyps, unspecified
[2024-11-21 13:26] VITALS: BP 148/80; PULSE 61; RESP 16; TEMP 36.9; O2SAT 96; BMI 30.4
--- OUTSIDE RECORDS SUMMARY | 2024-11-21 14:35 | XMS_ITS | Clinical Summary ---
Author Organization [employer] Address [address] [place] [address] Care Team Providers Care Supervisor [employer] Name Role Phone Unavailable Primary Care Provider Unavailabl e Immunizations Immunization Administration Dates Next Due Pfizer Covid-19 Vaccine 12+ 11/16/2023 Social History Tobacco Use Types Packs/Day Years Used Date Smoking Tobacco: Never Assessed Comments Unknown Sex and Gender Information Value Date Recorded Sex Assigned at Female 11/16/2023 10:50 AM EDT Legal Sex Female 10:25 AM EDT Gender Identity Female 11/16/2023 10:50 AM EDT Sexual Orientation Don't know 11/16/2023 10 :50 AM EDT Plan of Treatment Health Maintenance Due Date Last Done Comments Depression Screening 1935 Lipid Panel 1937 SDOH Screening 1937 Alcohol/Substance Use Screening 1949 Tobacco Screening 1949 DTaP/Tdap/Td Vaccines (1 - Tdap) 1956 Zoster Vaccines (1 of 2) 05/06/1987 Pneumococcal Vaccine: 50+ Ye ars (2 of 2 - PCV) 02/23/2012 02/22/2011 RSV Patients and Pa tients Aged 60 years or older (1 - 1-dose 75+ series) 2012 COVID-19 Vaccine (2 - 2023-2 5 season) 2024 11/16/2023 Influenza Vaccine (#1) 2024 HIB Vaccines Aged Out No longer eligi ble based on patient's age to complete this topic HPV Vaccines Aged Out No longer eligi ble based on patient's age to complete this topic Hepatitis A Vaccines Aged Out No long er eligible based on patient's age to complete this topic Hepatitis B Vaccines Aged Out No long er eligible based on patient's age to complete this topic IPV Vaccines Aged Out No longer eligi ble based on patient's age to complete this topic Meningococcal B Vaccine Aged Out No l onger eligible based on patient's age to complete this topic Meningococcal Vaccine Aged Out No pebbles roland eligible based on patient's age to complete this topic RSV under 20 months Aged Out No longe r eligible based on patient's age to complete this topic Rotavirus Vaccines Aged Out No longer eligible based on patient's age to complete this topic Insurance [facility]
--- OUTSIDE RECORDS SUMMARY | 2024-11-21 14:35 | XMS_ITS | Patient Health Record ---
Author Organization [facility] Address [address] [place] [address] Care Team Providers Care Etiquette Teacher Name Role Phone Karlee (RETIRED) Marquis OSBORN Primary Care Provide Bello Cole [phone] Allergies Allergen (clinical drug ingredient) Drug/Non Drug Allergy documented on EMR Reaction Allergy Type Onset Date Status sulfasalazine Sulfasalazine stomach upset Drug Allergy Active Reason For Referral No Information Medications Medication SIG (Take, Route, Frequency, Duration) Notes Start Date End Date Status Asacol HD 800 MG 1 Orally Three times a day for 30 day(s) 09/24/2020 Not-Taking Balsalazide Disodium 750 mg TAKE THREE CAPSULES THREE TIMES DAILY for 30 Active sulfaSALAzine Not-Ta klaus Balsalazide Disodium TAKE THREE CAPSULES BY MOUTH THREE TIMES A DAY Active Levothyroxine Sodium 100 MCG 1 tablet in the morning on an empty stomach Orally Once a day for 30 day(s) Active Metoprolol Tartrate 25 MG 1 tablet with food Oral as directed Active Zofran 4 MG 1 Orally Q 6 hours p rn nausea for 30 day(s) 10/15/2020 Active Pantoprazole Sodium 40 MG 1 tablet Orall y Once a day Active Immunizations Vaccine Route Administration Date Status Comme [...] Problem Status W/U Status Risk Notes Problem 898561222 Change in bowel habits (R19.4) Active confirmed Problem 778210345 Nausea (R11.0) Active confirmed Problem 81255161 Abdominal pain, epigastric (R10.13) Active confirmed Problem 281830024 Gastroesophageal reflux disease without esophagitis (K21.9) Active confirmed Problem 55148734 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) Active confirmed Problem Ulcerative colitis (06270980) Ulcerative colitis (K51.90) Active confirmed Problem Diverticular disease of colon (052063860) Diverticular disease of colon (K57.30) Active confirmed Problem 445519836 Positive colorec sandra cancer screening using Cologuard test (R19.5) Active confirmed Problem 491648271 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) Active confirmed Problem 697721534 Elevated pancrea tic enzyme (R74.8) Active confirmed Vital Signs Blood pressure diastolic 111 mm Hg 06/06/2024 Height 58 in 06/06/2024 Blood pressure systolic 111 mm Hg 06/06/2024 Weight 131 lbs 06/06/2024 BMI 27.38 kg/m2 06/06/2024 Encounters Encounter Location Date Provider Diagnosis [facility] [address] [place] [address] 06/06/2024 Bello Grayson Ulcerative colitis K 51.90 and Gastroesophageal reflux disease without esophagitis K21.9 Assessments Encounter Date Diagnosis (ICD Code) Assessment Notes Treatment Notes Treatment Clinical Notes Section Notes 06/06/2024 Ulcerative colitis (ICD-10 - K51.90) Overall, Tammy appears quite well. Her ulcerative colitis remains in clinical remission on her current regimen of the balsalazide. I did advise her to continue this long-term as she is not having any adverse effects from a symptomatic standpoint or by her chemistries. We again reviewed the issue of the previous relatively large polyp that was removed and the recommendation for a follow-up colonoscopy. However she adamantly refused that given her age and the fact that she is feeling well and does not want to risk anything . We did review the rationale for a colonoscopy in her case, despite her age, so as to remove any residual polyp tissue and theoretically prevent colorectal cancer. Nonetheless, she did not want to proceed with any invasive testing at this time. We also reviewed that her reflux is very stable and she should continue her daily pantoprazole as well. If things remain stable I will plan to see Tammy in 1 year. I did advise her to definitely call prior to that if she has any problems or questions I can be of assistance with. Tammy was very comfortable with this plan. Thank you again for allowing me to participate in Tammy's care. I shall continue to keep you advised of her progress. 06/06/2024 Gastroesophageal reflux disease without esophagitis (ICD-10 - K21.9) Overall, Tammy appears quite well. Her ulcerative colitis remains in clinical remission on her current regimen of the balsalazide. I did advise her to continue this long-term as she is not having any adverse effects from a symptomatic standpoint or by her chemistries. We again reviewed the issue of the previous relatively large polyp that was removed and the recommendation for a follow-up colonoscopy. However she adamantly refused that given her age and the fact that she is feeling well and does not want to risk anything . We did review the rationale for a colonoscopy in her case, despite her age, so as to remove any residual polyp tissue and theoretically prevent colorectal cancer. Nonetheless, she did not want to proceed with any invasive testing at this time. We also reviewed that her reflux is very stable and she should continue her daily pantoprazole as well. If things remain stable I will plan to see Tammy in 1 year. I did advise her to definitely call prior to that if she has any problems or questions I can be of assistance with. Tammy was very comfortable with this plan. Thank you again [...] Next Appt Details Provider Name:Bello Grayson , 06/12/2025 09:10:00 AM, [address], [address], [place], [address], Insurance Providers Payer Name Payer Address Payer Phone Subscriber Number Group Number Insured Name Patient Relationship to Insured Coverage Start Date Coverage End Date MEDICARE OF [place] [address] [place] [address] [phone] [id number] ZHEN TAMMY Self - patient is the insured [employer] ATT[employer] CLAIMS [address] [place] [address] [id number] TAMMY FONTAINE Self - patient is the insured Medical (General) History Medical History History ICD Code Denies PR,DM,CVA,Lung disease,renal dise ase Hypertension Hypothyroid GERD--EGD in [...]
== END 2024-11-21 13:48 | disposition home or self-care (01) ==
LOC: HO.HMCHD 13:17
PROVIDERS: PCP Internal Medicine; Visit Provider Physician Assistant
DX: I10 Essential (primary) hypertension (principal); E07.9 Disorder of thyroid, unspecified; K51.90 Ulcerative colitis, unspecified, without complications; M81.0 Age-related osteoporosis without current pathological fracture

== ENCOUNTER 2024-11-21 13:16 | Outpatient (REF) | payer MEDICARE, SELFPAY ==
[2024-11-21 18:34] LABS: Anion Gap 11 (12-20); Blood Urea Nitrogen 11 mg/dL (9-16); Calcium 9.3 mg/dL (8.4-10.2); Carbon Dioxide 29 mmol/L (22-29); Chloride 100 mmol/L (96-108); Estimated Glomerular Filt Rate > 60; Potassium 4.3 mmol/L (3.3-5.1); Sodium 136 mmol/L (135-145)
== END 2024-11-21 13:17 | disposition home or self-care (01) ==
LOC: HO.CHCLDS 13:16
PROVIDERS: PCP Internal Medicine; Visit Provider Physician Assistant
DX: I10 Essential (primary) hypertension (principal); E07.9 Disorder of thyroid, unspecified; M81.0 Age-related osteoporosis without current pathological fracture; K51.90 Ulcerative colitis, unspecified, without complications; L40.9 Psoriasis, unspecified; Z86.0100 Personal history of colon polyps, unspecified
CPT/HCPCS: 36415; 80048; 84443; 99212